=== PATIENT | male | born 1955 | race Caucasian/White ===

== ENCOUNTER → 2017-08-19 | Outpatient (CLI) | payer OTHER ==
[~2017-08-19] MED LIST: CLIN300C3 PO; DILT120C17 PO; LEVO125T6 PO; LISI20TA; LVT.05T PO; NAPR-243 PO
--- NOTE | 2017-08-19 11:00 | Diagnostic Imaging Report ---
PROCEDURE: CT neck soft tissue without contrast. TECHNIQUE: Multiple contiguous axial images were obtained through the neck without the use of intravenous contrast. INDICATION: Lump in left neck with difficulty swallowing and breathing. FINDINGS: Examination is technically limited due to lack of intravenous contrast. The lung apices are clear. The thyroid, submandibular and parotid glands are grossly normal in appearance. Visualized intracranial structures are unremarkable. There is mucosal thickening in maxillary sinuses bilaterally. Mastoid air cells are clear. There is some symmetric narrowing of the oropharyngeal airway. Nasopharyngeal soft tissues are grossly symmetric and without evidence of mass effect. Hypopharyngeal tissues are unremarkable. Vocal cords are midline. There are scattered subcentimeter lymph nodes however there is no pathologically enlarged adenopathy or mass in the neck. Evaluation is limited due to lack of intravenous contrast. There is moderate cervical spondylosis. IMPRESSION: 1. Symmetric narrowing of the oral pharyngeal airway. 2. No pathologically enlarged adenopathy or mass in the neck. 3. Mucosal thickening in the maxillary sinuses bilaterally. 4. Moderate cervical spondylosis. Dictated by: Dictated on workstation # [id number]
== END ==
LOC: RAD 08:49
PROVIDERS: ATTEND Family Medicine
DX: J34.89 Other specified disorders of nose and nasal sinuses (principal); J39.2 Other diseases of pharynx; M47.812 Spondylosis without myelopathy or radiculopathy, cervical region
CPT/HCPCS: 70490

== ENCOUNTER 2019-04-18 16:36 | Emergency (ER) | payer OTHER ==
[~2019-04-18] VITALS: Ht 180.3 cm; Wt 79.4 kg
[2019-04-18] MEDS ORDERED: ADENOSINE 6 MG/2 ML (ADENOCARD) VIAL IV ONE ×3 (16:38→17:15)
--- NOTE | 2019-04-18 17:08 | ED Cardiac General ---
History of Present Illness General Chief Complaint: Cardiac/General Problems Stated Complaint: HEART RATE 175 PER APPLE WATCH Source: patient Exam Limitations: no limitations History of Present Illness Date Seen by Provider: Apr 18, 2019 Time Seen by Provider: 17:07 Initial Comments To ER with reports of high heart rate that began about 3 PM while sitting on the couch. He was alerted to this by his apple watch. He had a bit of pressure in his chest no shortness of breath. History of high heart rate in 2009, not sure what the diagnosis was. Timing/Duration: changing over time Severity: moderate NTG SL ADMISSION DISCHARGE RN: No ASA po ADMISSION DISCHARGE RN: No Associated Systoms: Chest Pain Allergies and Home Medications Allergies Coded Allergies: No Known Allergies (Unverified Allergy, Mild, 08/03/09) Home Medications Clindamycin Hcl 300 Mg Capsule, 1 EACH PO QID Prescribed by: JASWANT JOY on 01/24/14 1216 Levothyroxine Sodium 125 Mcg Tablet, 125 EACH PO DAILY, (Reported) Naproxen 500 Mg Tablet, 1 EACH PO TID PRN for PAIN FOR PAIN Prescribed by: JASWANT JOY on 01/24/14 1216 Patient Home Medication List Home Medication List Reviewed: Yes Review of Systems Review of Systems Constitutional: see HPI EENTM: No Symptoms Reported Respiratory: No Symptoms Reported Cardiovascular: See HPI, Palpitations Gastrointestinal: No Symptoms Reported Genitourinary: No Symptoms Reported Musculoskeletal: no symptoms reported Skin: no symptoms reported Psychiatric/Neurological: No Symptoms Reported Endocrine: No Symptoms Reported Past Kqjaeeg-Nnfsfo-Bgcxlm Hx Past Medical History Reproductive Disorders: No Hypothyroidsim Physical Exam Vital Signs Vital Signs - First Documented 04/18/19 16:40 Temp 97.9 Pulse 170 Resp 20 B/P (MAP) 147/99 (115) Pulse Ox 99 Capillary Refill : Height, Weight, BMI Height: 6'0" Weight: 236lbs. oz. 107.523627pc; BMI Method:Stated General Appearance: No Apparent Distress, WD/WN HEENT: PERRL/EOMI, TMs Normal Neck: Full Range of Motion, Normal Inspection Respiratory: No Accessory Muscle Use, No Respiratory Distress Cardiovascular: Tachycardia (initial heart rate 160 irregular narrow complex) Gastrointestinal: Normal Bowel Sounds, Non Tender, Soft Extremity: Normal Capillary Refill, Normal Inspection Neurologic/Psychiatric: Alert, Oriented x3 Skin: Normal Color, Warm/Dry Progress/Results/Core Measures Results/Orders Lab Results Laboratory Tests Test 04/18/19 16:40 Range/Units White Blood Count 7.4 4.3-11.0 10^3/uL Red Blood Count 5.63 4.35-5.85 10^6/uL Hemoglobin 15.7 13.3-17.7 G/DL Hematocrit 46 40-54 % Mean Corpuscular Volume 81 80-99 FL Mean Corpuscular Hemoglobin 28 25-34 PG Mean Corpuscular Hemoglobin Concent 34 32-36 G/DL Red Cell Distribution Width 13.9 10.0-14.5 % Platelet Count 239 130-400 10^3/uL Mean Platelet Volume 10.1 7.4-10.4 FL Neutrophils (%) (Auto) 54 42-75 % Lymphocytes (%) (Auto) 34 12-44 % Monocytes (%) (Auto) 10 0-12 % Eosinophils (%) (Auto) 2 0-10 % Basophils (%) (Auto) 1 0-10 % Neutrophils # (Auto) 4.0 1.8-7.8 X 10^3 Lymphocytes # (Auto) 2.5 1.0-4.0 X 10^3 Monocytes # (Auto) 0.8 0.0-1.0 X 10^3 Eosinophils # (Auto) 0.1 0.0-0.3 10^3/uL Basophils # (Auto) 0.0 0.0-0.1 10^3/uL Prothrombin Time 14.5 12.2-14.7 SEC INR Comment 1.1 0.8-1.4 Activated Partial Thromboplast Time 37 H 24-35 SEC Sodium Level 142 135-145 MMOL/L Potassium Level 3.8 3.6-5.0 MMOL/L Chloride Level 105 98-107 MMOL/L Carbon Dioxide Level 22 21-32 MMOL/L Anion Gap 15 H 5-14 MMOL/L Blood Urea Nitrogen 19 H 7-18 MG/DL Creatinine 1.25 0.60-1.30 MG/DL Estimat Glomerular Filtration Rate 59 BUN/Creatinine Ratio 15 Glucose Level 151 H 70-105 MG/DL Calcium Level 9.5 8.5-10.1 MG/DL Corrected Calcium 9.1 8.5-10.1 MG/DL Magnesium Level 2.0 1.6-2.4 MG/DL Total Bilirubin 0.3 0.1-1.0 MG/DL Aspartate Amino Transf (AST/SGOT) 26 5-34 U/L Alanine Aminotransferase (ALT/SGPT) 24 0-55 U/L Alkaline Phosphatase 55 40-136 U/L Myoglobin 50.5 10.0-92.0 NG/ML Troponin I < 0.028 <0.028 NG/ML B-Type Natriuretic Peptide < 10.0 <100.0 PG/ML Total Protein 8.4 H 6.4-8.2 GM/DL Albumin 4.5 3.2-4.5 GM/DL Thyroid Stimulating Hormone (TSH) 0.90 0.35-4.94 UIU/ML Free Thyroxine 1.08 0.70-1.48 NG/DL My Orders Orders - TYLER RUSSELL APRN Cbc With Automated Diff (04/18/19 17:05) Magnesium (04/18/19 17:05) Chest 1 View, Ap/Pa Only (04/18/19 17:05) Ekg Tracing (04/18/19 17:05) Cardiac Profile 1 (04/18/19 17:05) Comprehensive Metabolic Panel (04/18/19 17:05) Myoglobin Serum (04/18/19 17:05) Protime With Inr (04/18/19 17:05) Partial Thromboplastin Time (04/18/19 17:05) O2 (04/18/19 17:05) Monitor-Rhythm Ecg Trace Only (04/18/19 17:05) Lipid Panel (04/19/19 06:00) Ed Iv/Invasive Line Start (04/18/19 17:05) BNP (04/18/19 17:05) Ekg Tracing (04/18/19 17:05) Ekg Tracing (04/18/19 17:05) Thyroid Stimulating Hormone (04/18/19 17:05) Free T4 (Free Thyroxine) (04/18/19 17:05) Adenosine Injection (Adenocard Injection (04/18/19 17:15) Adenosine Injection (Adenocard Injection (04/18/19 17:15) Medications Given in ED Current Medications Medications Dose Ordered Sig/Kassi Route Start Time Stop Time Status Last Admin Dose Admin Adenosine 6 mg ONCE ONCE IV 04/18/19 17:15 04/18/19 17:16 DC 04/18/19 16:46 6 MG Adenosine 12 mg ONCE ONCE IV 04/18/19 17:15 04/18/19 17:16 DC 04/18/19 16:48 12 MG Vital Signs/I&O 04/18/19 16:40 Temp 97.9 Pulse 170 Resp 20 B/P (MAP) 147/99 (115) Pulse Ox 99 Departure Communication (Admissions) Converted to normal sinus rhythm without ectopy rate in the 90s after the administration of 6 mg of adenosine which failed followed with 12 mg of adenosine which successfully converted. 1753-discussed with Dr. Tam. Recommends full dose aspirin 325 mg, follow up with him next week. Impression Primary Impression: Supraventricular tachycardia Disposition: HOME, SELF-CARE Condition: Improved Departure-Patient Inst. Decision time for Depature: 17:52 Referrals: SONIA SANTOS DO (PCP/Family) Primary Care Physician Jessica TAM MD Patient Instructions: Supraventricular Tachycardia (SVT) Add. Discharge Instructions: 1. Return to ER for any concerns 2. Call clamp forklift operator Dr. Tam on Saturday morning to make an appointment to be seen within one to 2 weeks. Tell them that you were in the emergency room and he wants to see you within 2 weeks. In the meantime start taking a full dose aspirin (325mg) daily. Continue all other current medications. All discharge instructions reviewed with patient and/or family. Voiced understanding. Copy Copies To 1: Jessica TAM MD, PETER J APRN Apr 18, 2019 17:08
[2019-04-18 17:11] LABS: BASOPHILS % (AUTO) 1 % (0-10); EOSINOPHILS # (AUTO) 0.1 10^3/uL (0.0-0.3); EOSINOPHILS % (AUTO) 2 % (0-10); HEMATOCRIT 46 % (40-54); HEMOGLOBIN 15.7 G/DL (13.3-17.7); LYMPHOCYTES # (AUTO) 2.5 X 10^3 (1.0-4.0); LYMPHOCYTES % (AUTO) 34 % (12-44); MEAN CORPUSCULAR HEMOGLOBIN 28 PG (25-34); MEAN CORPUSCULAR HGB CONC 34 G/DL (32-36); MEAN CORPUSCULAR VOLUME 81 FL (80-99); MEAN PLATELET VOLUME 10.1 FL (7.4-10.4); MONOCYTES # (AUTO) 0.8 X 10^3 (0.0-1.0); MONOCYTES % (AUTO) 10 % (0-12); NEUTROPHILS % (AUTO) 54 % (42-75); PLATELET COUNT 239 10^3/uL (130-400); RED CELL DISTRIBUTION WIDTH 13.9 % (10.0-14.5); WHITE BLOOD COUNT 7.4 10^3/uL (4.3-11.0)
[2019-04-18 17:16] LABS: INR 1.1 (0.8-1.4); PROTHROMBIN TIME PATIENT 14.5 SEC (12.2-14.7)
[2019-04-18 17:23] LABS: ALANINE AMINOTRANSFERASE 24 U/L (0-55); ALBUMIN 4.5 GM/DL (3.2-4.5); ALKALINE PHOSPHATASE 55 U/L (40-136); BILIRUBIN,TOTAL 0.3 MG/DL (0.1-1.0); BUN/CREATININE RATIO 15; CALCIUM 9.5 MG/DL (8.5-10.1); CARBON DIOXIDE 22 MMOL/L (21-32); CHLORIDE 105 MMOL/L (98-107); CREATININE SERUM 1.25 MG/DL (0.60-1.30); GFR ESTIMATED 59; GLUCOSE 151 MG/DL (70-105); POTASSIUM 3.8 MMOL/L (3.6-5.0); SODIUM 142 MMOL/L (135-145); TOTAL PROTEIN 8.4 GM/DL (6.4-8.2)
--- NOTE | 2019-04-18 17:38 | Diagnostic Imaging Report ---
EXAMINATION: Portable chest. INDICATION: Chest pressure. FINDINGS: Lungs demonstrate no focal infiltrate or consolidation. There is no effusion. There is no pneumothorax. Heart size and mediastinal contours appear appropriate and pulmonary vascularity appears normal. No acute or suspicious osseous abnormality evident. IMPRESSION: 1. No radiographic evidence of an acute cardiopulmonary process. Dictated by: Dictated on workstation # [id number]
[2019-04-18 17:44] LABS: FREE T4 (FREE THYROXINE) 1.08 NG/DL (0.70-1.48)
[2019-04-18] MEDS ORDERED: HOLD METFORMIN - RECEIVED CONTRAST 20 ML VIAL IV SCH (18:30)
[2019-04-18] MEDS ORDERED: IOHEXOL 350 MG/ML 100 ML (OMNIPAQUE 350) VIAL IV ONE (18:30)
[2019-04-18] MEDS ORDERED: NS 100 ML (IVPB) BAG IV ONE (18:30)
--- NOTE | 2019-04-18 18:41 | Diagnostic Imaging Report ---
PROCEDURE: CT angiography of the chest with contrast. TECHNIQUE: Multiple contiguous axial images were obtained through the chest after uneventful bolus administration of intravenous contrast. 3D reconstructed CTA MIP acquisitions were also performed. Auto Exposure Controls were utilized during the CT exam to meet ALARA standards for radiation dose reduction. INDICATION: Tachycardia and chest pressure. COMPARISON: Comparison is made with chest radiograph from earlier on the same day. FINDINGS: There is adequate opacification of the pulmonary arteries for diagnostic evaluation. There are no findings of a filling defect to suggest pulmonary embolism. Thoracic aorta is unremarkable. There are no findings of a dissection. Heart size appears appropriate. There is no pericardial collection. There are no pathologically enlarged mediastinal, hilar or axillary lymph nodes. The lungs appear clear without evidence of focal infiltrate or consolidation. There is no effusion. There is no pneumothorax. No pulmonary nodules or mass evident. Visualized portion of the upper abdomen demonstrates large gallstone within the gallbladder but no biliary dilatation or acute upper abdominal abnormality. Multilevel thoracic degenerative disc disease is present. No acute or suspicious osseous abnormality is demonstrated. IMPRESSION: 1. No CT angiographic evidence of pulmonary embolism. 2. Thoracic aorta is unremarkable. 3. Lungs are clear without infiltrate or effusion. 4. No pathologic adenopathy. 5. Cholelithiasis without biliary dilatation. 6. Thoracic degenerative disc disease. No acute or suspicious osseous abnormality evident. Dictated by: Dictated on workstation # [id number]
[2019-04-18 18:57] VITALS: BP 135/91
== END 2019-04-18 18:59 | disposition home or self-care (01) ==
LOC: EDUNIT# 16:36 → ER 16:38
DX: I47.1 Supraventricular tachycardia (principal); E03.9 Hypothyroidism, unspecified
CPT/HCPCS: 36415; 71045; 71275; 80053; 83735; 83874; 83880; 84439; 84443; 84484; 85025; 85610; 85730; 93005; 93041; 96374

== ENCOUNTER 2019-06-22 06:58 | Day surgery (SDC) | payer OTHER ==
[~2019-06-22] VITALS: Ht 183 cm; Wt 96.0 kg
[2019-06-22] VITALS (21 sets, daily range): BP systolic 108–139; BP diastolic 70–103
[2019-06-22] MEDS ORDERED: NS IV 1000 ML 1,000 ML IV SCH (07:02)
[2019-06-22] MEDS ORDERED: HEParin (CATH LAB) 1,000 ML IV ONE (07:03)
[2019-06-22] MEDS ORDERED: NS IV 1000 ML 1,000 ML ONE (07:03)
[2019-06-22] MEDS ORDERED: LIDOCAINE 1% INJ 20 ML 20 ML VIAL ONE (07:03)
[2019-06-22] MEDS ORDERED: ISOPROTERENOL 0.2 MG/D5W 50 ML IV ONE (07:15)
[2019-06-22] MEDS ORDERED: proPOfol 200 MG/20 ML (DIPRIVAN) VIAL IV ONE (07:17)
[2019-06-22] MEDS ORDERED: KETAMINE HCL 100 MG/ML 5 ML VIAL ONE (07:17)
[2019-06-22] MEDS ORDERED: MIDAZOLAM 5 MG/5 ML (VERSED) VIAL ONE (07:17)
[2019-06-22 07:20] LABS: HEMOGLOBIN 14.7 G/DL (13.3-17.7); MEAN PLATELET VOLUME 9.5 FL (7.4-10.4); RED CELL DISTRIBUTION WIDTH 13.7 % (10.0-14.5); WHITE BLOOD COUNT 5.7 10^3/uL (4.3-11.0)
[2019-06-22 07:30] LABS: INR 1.2 (0.8-1.4); PROTHROMBIN TIME PATIENT 16.1 SEC (12.2-14.7)
[2019-06-22] MEDS ORDERED: LEVO125T6 PO (07:37)
[2019-06-22] MEDS ORDERED: LORA10TA7 PO (07:38)
[2019-06-22] MEDS ORDERED: SIMV10TA3 PO (07:38)
[2019-06-22] MEDS ORDERED: DILT120C47 PO (07:38)
[2019-06-22] MEDS ORDERED: ASPI325T32 PO (07:38)
[2019-06-22] MEDS ORDERED: IBUP-2055 PO (07:38)
[2019-06-22] MEDS ORDERED: TRAZ-190 PO (07:38)
[2019-06-22] MEDS ORDERED: ACET325T38 PO (07:38)
[2019-06-22 07:39] LABS: ALANINE AMINOTRANSFERASE 19 U/L (0-55); ALBUMIN 4.6 GM/DL (3.2-4.5); ALKALINE PHOSPHATASE 51 U/L (40-136); BILIRUBIN,TOTAL 0.6 MG/DL (0.1-1.0); BUN/CREATININE RATIO 16; CALCIUM 9.6 MG/DL (8.5-10.1); CARBON DIOXIDE 23 MMOL/L (21-32); CHLORIDE 108 MMOL/L (98-107); CREATININE SERUM 1.22 MG/DL (0.60-1.30); GFR ESTIMATED 60; GLUCOSE 103 MG/DL (70-105); POTASSIUM 4.2 MMOL/L (3.6-5.0); SODIUM 143 MMOL/L (135-145); TOTAL PROTEIN 7.8 GM/DL (6.4-8.2)
[2019-06-22] MEDS ORDERED: [UNRECOGNIZED DRUG - OTHER] TOP (07:41)
[2019-06-22] MEDS ORDERED: TESTOST TOP (07:41)
[2019-06-22] MEDS ORDERED: DILT120C53 PO (07:46)
[2019-06-22] MEDS ORDERED: TRAZ-222 PO (07:47)
--- NOTE | 2019-06-22 07:48 | NUR ---
SPOKE WITH THE PT (HE HAD A MED LIST) WELL CALLING [employer] [facility] TO COMPLETE THE MED REC. 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 PT WAS ABLE TO TELL ME ALL HIS MEDICATIONS WELL HOW/WHEN HE TAKES THEM. THE FOLLOWING ARE FILL DATES FROM HIS MAIL ORDER PHARMACY: 03-26-2019 TRAZODONE #90/90DS 04-27-2019 SIMVASTATIN #90/90DS 05-08-2019 CARTIA (DILTIAZEM) #90/90DS 06-05-2019 LEVOTHYROXINE #90/90DS PT HAS USED A COMPOUNDED TESTOSTERONE WITH VANICREAM THAT HE GETS FROM [facility]. HE SAYS HE HAS NOT USED IT THE PAST COUPLE WEEKS- HIS LAST FILL DATE WAS 03-03-2019 OTC MEDS: TYLENOL 325MG ASPIIRN 325MG IBUPROFEN 200
[2019-06-22] MEDS ORDERED: PROPOFOL DRIP (ICU) 100 ML IV ONE (09:34)
[2019-06-22] MEDS ORDERED: fentaNYL INJECTION 100 MCG/2 ML AMP ONE (09:50)
--- NOTE | 2019-06-22 10:20 | Electrophysiology Procedure ---
EP Procedure DATE OF SERVICE:06/22/19 CARDIAC POLLUTION CONTROL CHEMIST: Alonzo Tam MD, [facility], [facility]. INDICATION: PSVT PREOPERATIVE DIAGNOSIS: PSVT POSTOPERATIVE DIAGNOSES: Typical AVNRT, successful ablation. HISTORY: 63-year-old gentleman with history of hypertension and hyperlipidemia. Episode of PSVT requiring ER visit on 04/18/2019. Converted with adenosine. The patient is planned for comprehensive EP study and ablation. PROCEDURE PERFORMED: 1. Comprehensive EP study with induction. 2. Fluoroscopy. 3.Left atrial pacing and recording. 4. Drug infusion. 5. Ablation of typical AVNRT 6. Comprehensive 3D mapping with the carto system. COMPLICATION: None. ESTIMATED BLOOD LOSS: 10 mL. CONTRAST USED: None. FLUOROSCOPY TIME: 6 minutes 28 seconds. FLUOROSCOPY DOSE: 114 mgy. SPECIMENS: None. ANESTHESIA: Done by our anesthesia colleagues. ANTICOAGULATION: None PROCEDURE IN DETAIL: After informed consent was taken, the patient was brought to the EP lab. Anesthesia was provided by our anesthesia colleagues. The patient was draped and prepped in the usual sterile fashion. The patient presented to the EP lab in sinus rhythm. Access was gained in the right femoral vein with a 6-Uruguayan and an 8-Uruguayan sheath. Left access in left femoral vein was gained with 5-Uruguayan and 6-Uruguayan sheath respectively. High right atrial catheter was an Emi catheter, right ventricular catheter was placed, his catheter and the CS catheter were also placed. A comprehensive EP study was done including left atrial pacing and recording. Dual AV mau physiology was demonstrated. Left atrial pacing and recording did not demonstrate a left lateral pathway. RV pacing demonstrated concentric atrial activation. Tachycardia was induced very easily during atrial ERP testing. This was done without Isuprel infusion. Septal VA time was 50 ms. Tachycardia cycle length was 393 ms. We tried numerous times to entrain the tachycardia however the tachycardia will convert to sinus rhythm therefore post pacing interval and post pacing response could not be demonstrated. Parahisian pacing was done in sinus rhythm which demonstrated a mau response.Diagnoses was typical AVNRT. A 3D electroanatomic mapping was donewith the carto system. High density voltage mapping was done in the slow pathway area inferior/septal to the history. Ablation was performed inferior/septal to the bundle of His in the slow pathway area based on the chronic anatomical and atrial and ventricular voltage ratio. Numerous junctional beats were noted. Atrial pacing demonstrated normal AV conduction during ablation.Isuprel was given post-procedure,which demonstrated no further dual AV mau physiology, no further induction. Occasional single AV mau echoes were demonstrated.The patient tolerated the procedure well and did not have any complication. The patientleft the lab in sinus rhythm. Total ablation time was 3 minutes and 49 seconds. MEASUREMENTS/EP STUDY: AA interval 754 ms, AH interval 78 ms, HV interval 49 ms, MI interval 164 ms, QRS duration 101 ms, QT interval 365 ms, R-R interval 754 ms, AV Wenckebach when pacing at 440 ms. Retrograde Wenckebach when pacing at 370 ms, Fast pathway ERP was 600/400 ms, Post-ablation, on Isuprel infusion: Retrograde ERP was 440/230 ms, Fast pathway ERP 400/230 ms. No further dual AV mau physiology. No further arrhythmias induced. PLAN: The patient will be observed overnight and will be discharged home tomorrow with precise followup instructions. Alonzo Tam MD, RS, CCDS Cardiac Electrophysiology Jessica TAM MD Jun 22, 2019 10:20 am POS
--- NOTE | 2019-06-22 10:24 | History & Physicial-Cardiolgy ---
HPI-Cardiology Cardiology Consultation: Date of Consultation 06/22/19 Date of Admission Attending Physician Jessica Vela MD Admitting Physician Tom Waldrop DO Consulting Physician Jessica VELA MD HPI: Time Seen by a Provider: 08:00 Chief Complaint: Palpitations This is a 63-year-old gentleman who presented to the ER on 04/18/2019 with complains of palpitation and was found to be in SVT. SVT converted with adenosine. He has history of hyperlipidemia and hypertension. EKG on 04/18/2019 showed wide complex tachycardia at 161 bpm with right bundle-branch block. QRS duration of 136 ms. Review of Systems-Cardiology Review of Systems Constitutional: As described under HPI; No As described under HPI, No no symptoms reported, No chills, No fever, No lightheadedness Eyes: No As described under HPI, No no symptoms reported, No blindness, No blurred vision, No contact lenses, No drainage, No decreased acuity, No foreign body sensation, No pain, No vision change Ears/Nose/Throat: No As described under HPI, No no symptoms reported, No chronic hearing loss, No ear discharge, No ear pain, No nasal drainage, No ulcerations Respiratory: No no symptoms reported; As described under HPI; No As described under HPI, No cough, No orthopnea, No shortness of breath, No SOB with excertion Cardiovascular: No no symptoms reported; As described under HPI; No As described under HPI, No chest pain, No edema, No irregular heart rate, No lightheadedness; palpitations Gastrointestinal: No no symptoms reported, No As described under HPI, No abdomen distended, No abdominal pain, No blood streaked bowels, No constipation, No diarrhea, No nausea, No vomiting, No stool coloration changes Genitourinary: No As described under HPI, No burning, No dysuria, No discharge, No frequency, No flank pain, No hematuria, No urgency Skin: No rash, No skin related problems, No ulcerations Psychiatric/Neurological: No anxiety, No depression, No seizure, No focal weakness, No syncope Hematologic: No bleeding abnormalities VXR-Fujjle-Kkkrao Hx Patient Social History Alcohol Use: Denies Use Recreational Drug Use: No Smoking Status: Former Smoker Recent Foreign Travel: No Recent Infectious Disease Expo: No Past Medical History PMH As described under Assessment. Allergies and Home Medications Allergies Coded Allergies: NKANo Known Allergies (Unverified Allergy, Mild, 08/03/09) Home Medications Acetaminophen 325 Mg Tablet, 650 MG PO Q8H PRN for PAIN-MILD (0-3), (Reported) Aspirin 325 Mg Tablet.dr, 325 MG PO 1800, (Reported) Diltiazem HCl 120 Mg Cap.er.24h, 120 MG PO 1800, (Reported) Ibuprofen 200 Mg Tablet, 400 MG PO Q8H PRN for PAIN-MILD (0-3), (Reported) Levothyroxine Sodium 125 Mcg Tablet, 125 MCG PO 0300, (Reported) Loratadine 10 Mg Tablet, 10 MG PO DAILY PRN for ALLERGY SYMPTOMS, (Reported) Simvastatin 10 Mg Tablet, 10 MG PO 1800, (Reported) Trazodone HCl 50 Mg Tablet, 50 MG PO 1200 PRN for SLEEP, (Reported) [Testost 10% W/ Vanic] CR, 0.5 ML TOP DAILY, (Reported) USES 2 CLICKS WHICH EQUAL 0.5 ML Patient Home Medication List Home Medication List Reviewed: Yes Physical Exam-Cardiology Physical Exam Vital Signs/I&O 06/22/19 07:12 Temp 37.0 Pulse 75 Resp 16 B/P (MAP) 139/103 (115) Pulse Ox 96 O2 Delivery Room Air Capillary Refill : Constitutional: appears stated age, AAO x 3; No apparent distress; well- developed, well-nourished HEENT: PERRL; No discharge; hearing is well preserved, oral hygience is good; No ulceration, No xanthelasmas are seen Neck: No carotid bruit; carotid pulses are 2 + bilaterally Respiratory: chest is bilaterally symmetric, lungs clear to auscultation Cardiovascular: regular rate-rhythm, S1 and S2 Gastrointestinal: soft, audible bowel sounds; No spleenomegaly Rectal: deferred Extremities: normal range of motion, non-tender, normal inspection; No clubbing, No cyanosis; no lower extremity edema bilateral; No significant edema Neurologic/Psychiatric: no motor/sensory deficits, alert, normal mood/affect, oriented x 3, power is 5/5 both on sides Skin: normal color, warm/dry; No rash, No ulcerations Data Review Labs Laboratory Tests 06/22/19 07:15: White Blood Count 5.7, Red Blood Count 5.32, Hemoglobin 14.7, Hematocrit 43, Mean Corpuscular Volume 81, Mean Corpuscular Hemoglobin 28, Mean Corpuscular Hemoglobin Concent 34, Red Cell Distribution Width 13.7, Platelet Count 210, Mean Platelet Volume 9.5, Prothrombin Time 16.1H, INR Comment 1.2, Activated Pa rtial Thromboplast Time 39H, Sodium Level 143, Potassium Level 4.2, Chloride Level 108H, Carbon Dioxide Level 23, Anion Gap 12, Blood Urea Nitrogen 19H, Creatinine 1.22, Estimat Glomerular Filtration Rate 60, BUN/Creatinine Ratio 16, Glucose Level 103, Calcium Level 9.6, Corrected Calcium , Total Bilirubin 0.6, Aspartate Amino Transf (AST/SGOT) 20, Alanine Aminotransferase (ALT/SGPT) 19, Alkaline Phosphatase 51, Total Protein 7.8, Albumin 4.6H ECG Impression ECG Initial ECG Rhythm: Normal Sinus Comment Right bundle-branch block. A/P-Cardiology Assessment/Admission Diagnosis PSVT Admission Status: Observation Plan PSVT ablation, EP study is recommended. Jessiac VELA MD Jun 22, 2019 10:24 am POS
[2019-06-22] MEDS ORDERED: PATIENT MAY USE OWN MEDS, ALL PO SCH (10:30)
[2019-06-22] MEDS ORDERED: morphine INJ 10 MG/ML 1ML (SYR OR VIAL) ONE (11:00)
[2019-06-22] MEDS ORDERED: ONDANSETRON 4 MG/2 ML (SDV) Z0FRAN IVP PRN (11:00)
[2019-06-22] MEDS ORDERED: morphine INJ 10 MG/ML 1ML (SYR OR VIAL) IVP ONE (11:00)
[2019-06-22] MEDS: NS IV 1000 ML 1,000 ML IV SCH ×2 (11:15→18:33)
[2019-06-22] MEDS ORDERED: KETOROLAC 30 MG/ML VIAL ONE (11:37)
[2019-06-22] MEDS ORDERED: KETOROLAC 30 MG/ML VIAL IV ONE (11:45)
--- NOTE | 2019-06-22 14:19 | Anesthesia-General Post-Op ---
General Patient Condition Mental Status/LOC: Same as Preop Cardiovascular: Satisfactory Nausea/Vomiting: Absent Respiratory: Satisfactory Pain: Controlled Complications: Absent Post Op Complications Complications None Follow Up Care/Instructions Patient Instructions None needed. Anesthesia/Patient Condition Patient Condition Patient is doing well, no complaints, stable vital signs, no apparent adverse anesthesia problems. No complications reported per nursing. JEFF JEAN BAPTISTE CRNA Jun 22, 2019 14:19 POS
[2019-06-22] MEDS ORDERED: SEVOFLURANE (ULTANE) 15 ML INHAL SOLN ONE (14:30)
[2019-06-22] MEDS ORDERED: CLOPIDOGREL 300 MG (PLAVIX) TABLET PO NR (16:00)
[2019-06-22] MEDS ORDERED: ASPIRIN 81 MG CHEW (CHILDREN'S ASA) PO NR (16:00)
[2019-06-23] VITALS (8 sets, daily range): BP systolic 121–133; BP diastolic 84–98
[2019-06-23 06:41] LABS: HEMOGLOBIN 13.1 G/DL (13.3-17.7); MEAN PLATELET VOLUME 9.7 FL (7.4-10.4); RED CELL DISTRIBUTION WIDTH 13.9 % (10.0-14.5); WHITE BLOOD COUNT 6.7 10^3/uL (4.3-11.0)
[2019-06-23] MEDS: NS IV 1000 ML 1,000 ML IV SCH (06:46)
[2019-06-23 06:58] LABS: BUN/CREATININE RATIO 15; CALCIUM 8.5 MG/DL (8.5-10.1); CARBON DIOXIDE 22 MMOL/L (21-32); CHLORIDE 108 MMOL/L (98-107); CREATININE SERUM 0.91 MG/DL (0.60-1.30); GFR ESTIMATED > 60; GLUCOSE 93 MG/DL (70-105); POTASSIUM 4.1 MMOL/L (3.6-5.0); SODIUM 138 MMOL/L (135-145)
[2019-06-23] MEDS ORDERED: CLOPIDOGREL 75 MG (PLAVIX) TABLET PO SCH (09:00)
[2019-06-23] MEDS ORDERED: ASPIRIN E.C. 81 MG (ECOTRIN) TAB PO SCH (09:00)
[2019-06-23] MEDS ORDERED: LIDOCAINE 1% INJ 20 ML 20 ML VIAL ONE (10:38)
[2019-06-23] MEDS ORDERED: HEParin (CATH LAB) 2,000 ML IV ONE (10:38)
--- NOTE | 2019-06-23 10:41 | Cardiology Progress Note ---
Cardiology SOAP Progress Note Subjective: prolonged episode of chest pressure yesterday Objective: I&O/Vital Signs 06/23/19 06/23/19 06/23/19 06/23/19 00:00 00:00 01:00 04:00 Temp 36.0 Pulse 63 61 65 Resp 17 10 B/P (MAP) 131/84 (100) 132/85 (101) Pulse Ox 97 97 O2 Delivery Room Air Room Air 06/23/19 06/23/19 06/23/19 06/23/19 06:57 07:52 08:00 09:09 Temp 36.7 Pulse 53 B/P (MAP) 130/95 (107) O2 Delivery Room Air Room Air 06/23/19 00:00 Intake Total 600 ml Balance 600 ml Weight (Pounds): 175 Weight (Calculated Kilograms): 79.000605 Constitutional: appears stated age, AAO x 3; No apparent distress; well- developed, well-nourished Respiratory: chest is bilaterally symmetric, lungs clear to auscultation Cardiovascular: regular rate-rhythm, S1 and S2 Gastrointestional: soft, audible bowel sounds; No spleenomegaly Extremities: normal range of motion, non-tender, normal inspection; No clubbing, No cyanosis; no lower extremity edema bilateral; No significant edema Neurologic/Psychiatric: no motor/sensory deficits, alert, normal mood/affect, oriented x 3, power is 5/5 both on sides Skin: normal color, warm/dry; No rash, No ulcerations Results/Procedures: Labs Laboratory Tests 06/22/19 12:24: Troponin I 0.259H 06/22/19 14:40: Troponin I 0.291*H 06/23/19 00:00: Troponin I 0.274H 06/23/19 06:34: Troponin I 0.237H, White Blood Count 6.7, Red Blood Count 4.68, Hemoglobin 13.1L , Hematocrit 39L, Mean Corpuscular Volume 83, Mean Corpuscular Hemoglobin 28, Mean Corpuscular Hemoglobin Concent 34, Red Cell Distribution Width 13.9, Platelet Count 169, Mean Platelet Volume 9.7, Sodium Level 138, Potassium Level 4.1, Chloride Level 108H, Carbon Dioxide Level 22, Anion Gap 8, Blood Urea Nitrogen 14, Creatinine 0.91, Estimat Glomerular Filtration Rate > 60, BUN/Creatinine Ratio 15, Glucose Level 93, Calcium Level 8.5 A/P: Assessment/Dx: PSVT, Non-STEMI Plan: Typical AVNRT ablation done 06/18/2019. Prolonged episode of chest pressure. EKG did not reveal any significant ST-T wave abnormalities. Positive troponin. Patient does have risk factors including hyperlipidemia and hypertension. Coronary angiography will be performed. Informed consent was taken. Thank you for your consultation. Please call me if you have any questions. Alonzo Tam MD, FACP, FACC, FSCAI, FHRS, CCDS Interventional Cardiology Cardiac Electrophysiology Vascular Medicine and Endovascular Interventions Jessica TAM MD Jun 23, 2019 10:41 POS
[2019-06-23] MEDS ORDERED: MIDAZOLAM 5 MG/5 ML (VERSED) VIAL ONE (11:09)
[2019-06-23] MEDS ORDERED: fentaNYL INJECTION 100 MCG/2 ML AMP ONE (11:09)
[2019-06-23] MEDS ORDERED: HEParin 1000 UNIT/ML (10ML VIAL) FOR BOLUS ONE (11:13)
[2019-06-23] MEDS ORDERED: VERAPAMIL 5 MG/2 ML (CALAN) VIAL IV ONE (11:13)
[2019-06-23] MEDS ORDERED: NITRO DRIP 25000 MCG/D5W 0 ML IV ONE (11:13)
[2019-06-23] MEDS ORDERED: NS IV 1000 ML 1,000 ML ONE (11:25)
--- NOTE | 2019-06-23 12:16 | Cardiac Procedure Note-CS/ASA ---
Pre-Procedure Note Pre-Op Procedure Note H&P Reviewed The H&P was reviewed, patient examined and no changes noted. Date H&P Reviewed: Jun 23, 2019 Time H&P Reviewed: 10:00 Conscious Sedation Pre-Proced Time 10:00 ASA Score 3 For ASA 3 and 4: Consider anesthesia and medical clearance. Also, for patients with a history of failed moderate sedation consider anesthesia. Airway Lungs Heart ASA score ASA 1: a normal healthy patient ASA 2: a patient with a mild systemic disease (mid diabetes, controlled hypertension, obesity ASA 3: a patient with a severe systemic disease that limits activity (angina, COPD, prior Myocardial infarction) ASA 4: a patient with an incapacitating disease that is a constant threat to life (CHF, renal failure) ASA 5: a moribund patient not expected to survive 24 hrs. (ruptured aneurysm) ASA 6: a declared brain- patient whose organs are being harvested. For emergent operations, add the letter E after the classification Mallampati Classification Grade 1 Sedation Plan Analgesia, Amnesia, Plan communicated to team members, Discussed options with patient/fam, Discussed risks with patient/fam The patient is an appropriate candidate to undergo the planned procedure, sedation, and anesthesia. The patient immediately re-assessed prior to indication. Jessica VELA MD Jun 23, 2019 12:16 pm POS
--- NOTE | 2019-06-23 12:19 | Coronary Angiography Report ---
Coronary Angiography Report DATE OF PROCEDURE: 06/23/19 INDICATION: Non-STEMI PREOPERATIVE DIAGNOSIS: Non-STEMI POSTOPERATIVE DIAGNOSIS: Mild CAD HISTORY: This is a 63-year-old gentleman with history of hypertension and hyperlipidemia. He presented with PSVT and had PSVT ablation on 06/22/2019. Postprocedure he developed moderate to severe prolonged episode of chest pain. Positive troponin. Working diagnosis is non-STEMI. Therefore, the patient was scheduled for coronary angiography. PROCEDURES PERFORMED: 1.Coronary angiography. 2.Left heart catheterization. COMPLICATIONS: None. SPECIMENS: None. ESTIMATED BLOOD LOSS: 10 mL ANESTHESIA: Conscious sedation ANTICOAGULATION: None. CONTRAST: 40 mL. FLUOROSCOPY: 2.8 minutes. FLOUROSCOPY DOSE: 293 MGY. PROCEDURE DETAILS: The patient is a 63 male and was brought to the public works laborer after informed consent was taken. All the risks and complications were explained in detail; this included the risk of bleeding, vascular damage, stroke, [place] and even . The patient was draped and prepped in the usual sterile fashion. Access was gained in the right femoral artery with a 6 Lithuanian sheath due to abnormal Riley's test. Coronary angiography and left heart catheterization was performed with a JR4 and JL4 catheter. FINDINGS: 1.Left main: Patent. 2.LAD: Luminal irregularities. No focal stenosis. 3.Left circumflex artery: Patent. 4.RCA: Very mild proximal disease with calcification. Stenosis severity less than 10 percent. No focal stenosis. 5.Left heart catheterization: LV pressure 125/9 mmHg, LVEDP 20 mmHg. Aortic pressure 135/82 mmHg. Normal LV function with no wall motion of mellitus. No gradient across the aortic valve. CONCLUSIONS: Mild CAD. Elevated LVEDP suggesting diastolic dysfunction. Positive troponin likely due to SVT ablation which was done yesterday. Continue secondary prevention measures. Alonzo Tam MD, FACP, FACC, [facility] Interventional Cardiology Jessica TAM MD Jun 23, 2019 12:19 pm POS
--- NOTE | 2019-06-23 12:23 | Cardiology Discharge Summary ---
Diagnosis/Chief Complaint Date of Admission 06/18/2019 Date of Discharge 06/23/2019 Admission Diagnosis PSVT, Chest pain, positive troponin Final/Discharge Diagnosis 1. Successful typical AVNRT ablation. 2. Mild CAD on coronary angiography, likely positive troponin and chest pain post-ablation. Chief Complaint/HPI Chief Complaint/HPI This is a 63-year-old gentleman who presented to the ER on 04/18/2019 with complains of palpitation and was found to be in SVT. SVT converted with adenosine. He has history of hyperlipidemia and hypertension. EKG on 04/18/2019 showed wide complex tachycardia at 161 bpm with right bundle-branch block. QRS duration of 136 ms. Discharge Summary Procedures 06/22/2019typical AVNRT ablation. 06/23/2019coronary angiography which showed very mild CAD. Elevated LVEDP. Discharge Physical Examination Unremarkable. Normal cardiac vascular examination. Hospital Course Was the Problem List Reviewed?: Yes Patient had a prolonged episode of chest pressure last evening. EKG was negative. Serial troponin were positive. The patient did have risk factors including hypertension and hyperlipidemia. After discussion, we decided to proceed with coronary angiography. Informed consent was taken. Coronary angiography did not show any significant CAD. Elevated LVEDP suggested diast olic dysfunction. Pending Labs Laboratory Tests 06/23/19 06:34: White Blood Count 6.7, Red Blood Count 4.68, Hemoglobin 13.1, Hematocrit 39, Mean Corpuscular Volume 83, Mean Corpuscular Hemoglobin 28, Mean Corpuscular Hemoglobin Concent 34, Red Cell Distribution Width 13.9, Platelet Count 169, Mean Platelet Volume 9.7, Sodium Level 138, Potassium Level 4.1, Chloride Level 108, Carbon Dioxide Level 22, Anion Gap 8, Blood Urea Nitrogen 14, Creatinine 0.91, Estimat Glomerular Filtration Rate > 60, BUN/Creatinine Ratio 15, Glucose Level 93, Calcium Level 8.5, Troponin I 0.237 Discussion & Recommendations Discussion Discharge discussion done. Patient will go home on the same medications. Follow up in office in 3-4 weeks. Follow up appt.: Follow-up in 3-4 weeks. Dicharge Diet: Cardiac Diet Activity as Tolerated: Yes Home Medications Reviewed patient Home Medication Reconciliation performed by pharmacy medication reconciliations voice intercept technician and/or nursing. Patients Allergies have been reviewed. Discharge Home Medications: Reviewed and agree with Discharge Medication list on patient's Discharge Instruction sheet Condition at discharge Stable. Instructions to patient/family Discussed with the patient and family. Jessica VELA MD Jun 23, 2019 12:23 pm POS
--- NOTE | 2019-06-23 12:24 | Discharge Inst-Post CATH ---
Discharge Inst-CATH/EP Problems Reviewed?: Yes Final Diagnosis PSVT, successful typical AVNRT ablation. Chest pain, positive troponin post-ablation, no significant CAD on coronary angiography. Post Cardiac Cath/EP D/C Inst Follow Up/Plan Discussed with the patient and family. <b>CARDIAC CATH/EP PROCEDURE DISCHARGE INSTRUCTIONS</b> ACTIVITY * Go Home directly and rest. * Limit activity of the leg (or wrist if it was used) for 7 days including aerobics, swimming, jogging, bicycling, etc. * Restrict stair-climbing for 7 days if possible, if not, climb up with your non-cath leg, then bring together on the same step. * Avoid lifting, pushing, pulling or excessive movement of the affected extremity for 7 days. * Customary sexual activity may be resumed after 2 days-use caution not to use a position that strains or causes pain to the affected extremity. * No driving for 24 hours. * NO SMOKING. * Avoid straining for bowel movements for 7 days. * Gentle walking on level ground is allowed. * Returning to work will depend on the type of procedure and the results. Your doctor will discuss this with you. CALL YOUR DOCTOR FOR ANY OF THE FOLLOWING: *If bleeding from the puncture site occurs- Apply gentle pressure to site with clean cloth and call your doctor or EMS. * If a knot or lump forms under the skin, increases in size, or causes pain. * If bruising appears to be worsening or moving further down your leg instead of disappearing. * Temperature above 101 F. CARE OF YOUR GROIN INCISION; * Bruising or purple discoloration of the skin near the puncture site is common. * You may shower only, no bathtub bathing for 5 days. Be careful to avoid slipping as your leg may feel stiff. * If a closure device was used on your femoral artery, please see the attached guide regarding care of the device and your leg. * Leave dressing on FOR 24 hours. CARE OF YOUR WRIST INCISION; * Bruising or purple discoloration of the skin near the puncture site is common. * You may shower. * DO NOT submerge wrist. * Leave dressing on FOR 24 hours. Jessica VELA MD Jun 23, 2019 12:24 pm POS
--- NOTE | 2019-06-23 13:56 | NUR ---
Initial visit with the pt (Siddharth) and his (Betzy). Betzy was tearful, stating that before now Siddharth had taken care of her through various illnesses. They both expressed tarik in God and said, expressed gratitude for a timely visit and requested prayer.
== END 2019-06-23 17:01 | disposition home or self-care (01) ==
LOC: CATH 06:58 → ICU 12:11 → CATH 06-23 17:01
PROVIDERS: ATTEND Internal Medicine Interventional Cardiology
DX: I21.4 Non-ST elevation (NSTEMI) myocardial infarction (principal); I25.10 Atherosclerotic heart disease of native coronary artery without angina pectoris; I10 Essential (primary) hypertension; E78.5 Hyperlipidemia, unspecified; I47.1 Supraventricular tachycardia; I48.92 Unspecified atrial flutter; G62.9 Polyneuropathy, unspecified; Z87.891 Personal history of nicotine dependence; Z79.82 Long term (current) use of aspirin; Z79.891 Long term (current) use of opiate analgesic; Z79.1 Long term (current) use of non-steroidal anti-inflammatories (NSAID); Z79.899 Other long term (current) drug therapy
CPT/HCPCS: 36415; 80048; 80053; 84484; 85027; 85610; 85730; 87081; 93005; 93458; 93613; 93621; 93623; 93653

== ENCOUNTER 2019-10-04 18:00 | Emergency (ER) | payer OTHER ==
[~2019-10-04] VITALS: Ht 182.9 cm; Wt 96.2 kg
[~2019-10-04 18:00] MED LIST changes: +ACET325T38 PO; +ASPI325T32 PO; +DILT120C47 PO; +DILT120C53 PO; +IBUP-2473 PO; +LORA10TA7 PO; +SIMV10TA26 PO; +TESTOST TOP; +TRAZ-227 PO; +TRZ50T PO; +[UNRECOGNIZED DRUG - OTHER] TOP
[2019-10-04] MEDS ORDERED: ASPIRIN 81 MG CHEW (CHILDREN'S ASA) PO ONE (18:30)
[2019-10-04 18:33] LABS: BASOPHILS % (AUTO) 0 % (0-10); EOSINOPHILS % (AUTO) 0 % (0-10); HEMATOCRIT 43 % (40-54); HEMOGLOBIN 14.9 G/DL (13.3-17.7); LYMPHOCYTES # (AUTO) 0.5 X 10^3 (1.0-4.0); LYMPHOCYTES % (AUTO) 7 % (12-44); MEAN CORPUSCULAR HEMOGLOBIN 28 PG (25-34); MEAN CORPUSCULAR HGB CONC 35 G/DL (32-36); MEAN CORPUSCULAR VOLUME 80 FL (80-99); MEAN PLATELET VOLUME 9.8 FL (7.4-10.4); MONOCYTES # (AUTO) 0.9 X 10^3 (0.0-1.0); MONOCYTES % (AUTO) 12 % (0-12); NEUTROPHILS # (AUTO) 5.9 X 10^3 (1.8-7.8); NEUTROPHILS % (AUTO) 81 % (42-75); PLATELET COUNT 209 10^3/uL (130-400); RED CELL DISTRIBUTION WIDTH 13.8 % (10.0-14.5); WHITE BLOOD COUNT 7.3 10^3/uL (4.3-11.0)
[2019-10-04] MEDS ORDERED: NS IV 1000 ML 1,000 ML IV SCH (18:35)
[2019-10-04 18:38] LABS: INR 1.3 (0.8-1.4); PROTHROMBIN TIME PATIENT 16.6 SEC (12.2-14.7)
[2019-10-04 18:49] LABS: BAND NEUTROPHILS 4 %; LYMPHOCYTES % (MANUAL) 7 %; MONOCYTES % (MANUAL) 9 %; NEUTROPHILS % (MANUAL) 80 %
[2019-10-04 18:50] LABS: ALBUMIN 4.5 GM/DL (3.2-4.5); BILIRUBIN,TOTAL 0.5 MG/DL (0.1-1.0); CALCIUM 9.4 MG/DL (8.5-10.1); CREATININE SERUM 1.23 MG/DL (0.60-1.30); POTASSIUM 3.6 MMOL/L (3.6-5.0)
--- NOTE | 2019-10-04 18:52 | Diagnostic Imaging Report ---
INDICATION: Flu symptoms. COMPARISON: Prior examination from 04/18/2019. EXAMINATION: Single view of the chest was obtained. FINDINGS: The heart size, mediastinal configuration, and pulmonary vascularity are within normal limits. There is no pleural effusion, pneumothorax or pneumonia. The osseous structures are unremarkable. IMPRESSION: No acute cardiopulmonary abnormality. Dictated by: Dictated on workstation # [id number]
--- NOTE | 2019-10-04 18:57 | ED Cardiac General ---
History of Present Illness General Chief Complaint: Chest Pain Stated Complaint: DX W/ INFLUENZA A/IMTERMITTENT CHEST PRESSURE Nursing Triage Note: Pt amb to room #7 (sent from [facility]) with c/o medial chest discomfort. 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 Pt reports upon rise on this day he developed medial chest discomfort. Pt reports intermittent dizziness, cough, et fatigue. Pt states, "It feels like someone is taking their thumb and just pushing it in my chest." A&OX4. @ side. History of Present Illness Date Seen by Provider: Oct 04, 2019 Time Seen by Provider: 18:05 Initial Comments 64-year-old male awoke this morning with generalized discomfort and low-grade fevers, he denies specific chest pain but more generalized pain. He did not receive a flu vaccine this year. He was seen by [facility] urgent care and found to be flu A+. He has a history of PSVT and had a ablation and heart cath in Jun 2019. He takes Aspirin 325 mg daily, no anticoagulants. He reports mild nausea throughout the day however at this time he denies any nausea, vomiting or chest pain. Timing/Duration: 4-6 hours Prior CP/Workup: cardiac cath NTG SL COACH OPERATOR: No ASA po COACH OPERATOR: No Associated Systoms: No Chest Pain; Cough, Fever/Chills; No Headaches; Malaise, Nausea/Vomiting; No Shortness of Air, No Syncope, No Weakness Allergies and Home Medications Allergies Coded Allergies: NKANo Known Allergies (Unverified Allergy, Mild, 08/03/09) Home Medications Acetaminophen 325 Mg Tablet, 650 MG PO Q8H PRN for PAIN-MILD (0-3), (Reported) Aspirin 325 Mg Tablet.dr, 325 MG PO 1800, (Reported) Diltiazem HCl 120 Mg Cap.er.24h, 120 MG PO 1800, (Reported) Ibuprofen 200 Mg Tablet, 400 MG PO Q8H PRN for PAIN-MILD (0-3), (Reported) Levothyroxine Sodium 125 Mcg Tablet, 125 MCG PO 0300, (Reported) Loratadine 10 Mg Tablet, 10 MG PO DAILY PRN for ALLERGY SYMPTOMS, (Reported) Simvastatin 10 Mg Tablet, 10 MG PO 1800, (Reported) Trazodone HCl 50 Mg Tablet, 50 MG PO 1200 PRN for SLEEP, (Reported) [Testost 10% W/ Vanic] CR, 0.5 ML TOP DAILY, (Reported) USES 2 CLICKS WHICH EQUAL 0.5 ML Patient Home Medication List Home Medication List Reviewed: Yes Review of Systems Review of Systems Constitutional: no symptoms reported, see HPI Respiratory: See HPI, Cough Cardiovascular: See HPI; Denies Chest Pain Gastrointestinal: See HPI, Nausea, Poor Appetite; Denies Vomiting All Other Systems Reviewed Negative Unless Noted: Yes Past Kuofjyq-Zzhtlz-Jjiwll Hx Past Med/Social Hx: Reviewed Nursing Past Med/Soc Hx Patient Social History Alcohol Use: Rarely Uses Number of Drinks Today: 0 Recreational Drug Use: No Smoking Status: Former Smoker Former Smoker, Quit: Aug 12, 1996 2nd Hand Smoke Exposure: No Recent Foreign Travel: No Contact w/Someone Who Travel: No Recent Infectious Disease Expo: No Recent Hopitalizations: No Past Medical History Surgeries: Yes (ROTATOR CUFF REPAIR) Tonsillectomy Respiratory: No Currently Using CPAP: No Currently Using BIPAP: No Cardiac: Yes (Ablation ) Hypertension Neurological: No Reproductive Disorders: No Genitourinary: No Gastrointestinal: Yes Gastroesophageal Reflux Endocrine: Yes (TAKES THYROID MED) Hypothyroidsim HEENT: No Cancer: No Psychosocial: No Integumentary: No Blood Disorders: No Physical Exam Vital Signs Vital Signs - First Documented Capillary Refill : Less Than 3 Seconds Height, Weight, BMI Height: 5'11.00" Weight: 175lbs. oz. [id number]; 28.00 BMI Method:Stated General Appearance: No Apparent Distress, WD/WN HEENT: PERRL/EOMI, TMs Normal, Normal ENT Inspection, Pharynx Normal Neck: Full Range of Motion, Normal Inspection, Non Tender, Supple Respiratory: Chest Non Tender, Lungs Clear, Normal Breath Sounds Cardiovascular: Regular Rate, Rhythm, No Edema, No Murmur, Normal Peripheral Pulses Gastrointestinal: Normal Bowel Sounds, Non Tender, Soft Neurologic/Psychiatric: Alert, Oriented x3, No Motor/Sensory Deficits, Normal Mood/Affect Skin: Normal Color, Warm/Dry Progress/Results/Core Measures Results/Orders Lab Results Laboratory Tests Test 10/04/19 18:10 Range/Units White Blood Count 7.3 4.3-11.0 10^3/uL Red Blood Count 5.38 4.35-5.85 10^6/uL Hemoglobin 14.9 13.3-17.7 G/DL Hematocrit 43 40-54 % Mean Corpuscular Volume 80 80-99 FL Mean Corpuscular Hemoglobin 28 25-34 PG Mean Corpuscular Hemoglobin Concent 35 32-36 G/DL Red Cell Distribution Width 13.8 10.0-14.5 % Platelet Count 209 130-400 10^3/uL Mean Platelet Volume 9.8 7.4-10.4 FL Neutrophils (%) (Auto) 81 H 42-75 % Lymphocytes (%) (Auto) 7 L 12-44 % Monocytes (%) (Auto) 12 0-12 % Eosinophils (%) (Auto) 0 0-10 % Basophils (%) (Auto) 0 0-10 % Neutrophils # (Auto) 5.9 1.8-7.8 X 10^3 Lymphocytes # (Auto) 0.5 L 1.0-4.0 X 10^3 Monocytes # (Auto) 0.9 0.0-1.0 X 10^3 Eosinophils # (Auto) 0.0 0.0-0.3 10^3/uL Basophils # (Auto) 0.0 0.0-0.1 10^3/uL Neutrophils % (Manual) 80 % Lymphocytes % (Manual) 7 % Monocytes % (Manual) 9 % Band Neutrophils 4 % Prothrombin Time 16.6 H 12.2-14.7 SEC INR Comment 1.3 0.8-1.4 Activated Partial Thromboplast Time 37 H 24-35 SEC Sodium Level 139 135-145 MMOL/L Potassium Level 3.6 3.6-5.0 MMOL/L Chloride Level 104 98-107 MMOL/L Carbon Dioxide Level 22 21-32 MMOL/L Anion Gap 13 5-14 MMOL/L Blood Urea Nitrogen 15 7-18 MG/DL Creatinine 1.23 0.60-1.30 MG/DL Estimat Glomerular Filtration Rate 60 BUN/Creatinine Ratio 12 Glucose Level 114 H 70-105 MG/DL Calcium Level 9.4 8.5-10.1 MG/DL Corrected Calcium 9.0 8.5-10.1 MG/DL Magnesium Level 2.0 1.6-2.4 MG/DL Total Bilirubin 0.5 0.1-1.0 MG/DL Aspartate Amino Transf (AST/SGOT) 23 5-34 U/L Alanine Aminotransferase (ALT/SGPT) 17 0-55 U/L Alkaline Phosphatase 60 40-136 U/L Myoglobin 53.3 10.0-92.0 NG/ML Troponin I < 0.028 <0.028 NG/ML Total Protein 8.0 6.4-8.2 GM/DL Albumin 4.5 3.2-4.5 GM/DL My Orders Orders - ZULEIKA SIMMONS Continuous Ekg Monitoring (10/04/19 18:01) Ekg Tracing (10/04/19 18:) Cbc With Automated Diff (10/04/19 18:27) Magnesium (10/04/19 18:27) Chest 1 View, Ap/Pa Only (10/04/19 18:) Comprehensive Metabolic Panel (10/04/19 18:) Myoglobin Serum (10/04/19 18:) Protime With Inr (10/04/19 18:) Partial Thromboplastin Time (10/04/19 18:) O2 (10/04/19 18:) Monitor-Rhythm Ecg Trace Only (10/04/19 18:27) Ed Iv/Invasive Line Start (10/04/19 18:27) Troponin I (10/04/19 18:27) Aspirin Chewable Tablet (Baby Aspirin Ch (10/04/19 18:30) Manual Differential (10/04/19 18:10) Ed Iv/Invasive Line Start (10/04/19 18:35) Ns Iv 1000 Ml (Sodium Chloride 0.9%) (10/04/19 18:35) Acetaminophen Tablet (Tylenol Tablet) (10/04/19 19:32) Rx-Oseltamivir Caps (Rx-Tamiflu Caps) (10/04/19 19:36) Monotest (10/04/19 19:40) Rx-Ondansetron Po (Rx-Zofran Po) (10/04/19 19:53) Medications Given in ED Current Medications Medications Dose Ordered Sig/Kassi Route Start Time Stop Time Status Last Admin Dose Admin Aspirin 324 mg ONCE ONCE PO 10/04/19 18:30 10/04/19 18:31 DC 10/04/19 18:37 324 MG Vital Signs/I&O 10/04/19 10/04/19 18:05 18:05 Temp 37.6 Pulse 100 Resp 18 B/P (MAP) 137/86 (103) Pulse Ox 97 O2 Delivery Room Air Room Air Blood Pressure Mean: 103 Progress Progress Note : Time: 18:05 Progress Note Patient seen and evaluated, will give aspirin 324 mg orally, normal saline 1 L IV, repeat EKG, chest x-ray and labs. Patient denies need for nausea at this time. He is denying chest pain at this time. Will monitor. 1899 Labs, EKG and Chest xray all essentially normal. Patient reports to be feeling better 1929 Temp 99.8, requesting Tylenol, will give 1,000 mg PO. Would like d/c with Tamilfu. 1999 patient reports to be feeling better. Discharge instructions and return precautions reviewed with him. All questions answered. Diagnostic Imaging Diagonstic Imaging: Xray Plain Films/CT/US/NM/MRI: chest Comments NAME: OLVIN CHO [facility] REC#: [id number] PT STATUS: REG ER : 1955 PHYSICIAN: ZULEIKA SIMMONS ADMIT DATE: 10/04/19/ER Draft Date of Exam:10/04/19 CHEST 1 VIEW, AP/PA ONLY INDICATION: Flu symptoms. COMPARISON: Prior examination from 04/18/2019. EXAMINATION: Single view of the chest was obtained. FINDINGS: The heart size, mediastinal configuration, and pulmonary vascularity are within normal limits. There is no pleural effusion, pneumothorax or pneumonia. The osseous structures are unremarkable. IMPRESSION: No acute cardiopulmonary abnormality. Dictated on workstation # [id number] Dict: 10/04/19 1848 Trans: 10/04/19 1851 [facility] [id number] Interpreted by: MC GARCIA MD Electronically signed by: Reviewed: Reviewed by Me Departure Impression Primary Impression: Influenza A Disposition: 01 HOME, SELF-CARE Condition: Improved Departure-Patient Inst. Decision time for Depature: 20:00 Referrals: SONIA SANTOS DO (PCP/Family) Primary Care Physician Patient Instructions: Flu, Adult (DC) Add. Discharge Instructions: Increase fluids, 16 ounces of water every 2 hours while awake. Continue with her home medications. Follow up with your primary care provider or dispatch lead if symptoms are not improving or worsen. You will have muscle aches, intermittent fevers and cough for approximately 5-7 days with influenza. Alternate Tylenol 650 mg and ibuprofen 600 mg every 4 hours for pain or fever. Take the Tamiflu one tablet twice daily for 5 days. Use the Zofran 1 tablet every 6-8 hours as needed for nausea or vomiting. Return to the emergency department for chest pain, shortness of breath, fever greater than 101 not relieved by Tylenol and ibuprofen, or new, urgent health care needs. All discharge instructions reviewed with patient and/or family. Voiced understanding. Work/School Note: Work Release Form Date Seen in the Emergency Department: Oct 04, 2019 Return to Work: Oct 08, 2019 Other Restrictions Listed Below: May return to work when fever free without medication for 24 hours. Copy Copies To 1: Jessica VELA MD Copies To 2: SONIA SANTOS AMY ARNP Oct 04, 2019 18:57
[2019-10-04] MEDS ORDERED: ACETAMINOPHEN 500 MG TAB (TYLENOL) PO STA (19:32)
[2019-10-04] MEDS ORDERED: RX-OSELTAMIVIR 75 MG (TAMIFLU) BOX OF 10 PO STA (19:36)
[2019-10-04] MEDS ORDERED: RX-ONDANSETRON 4 MG ODT (ZOFRAN) PPK #4 PO STA (19:53)
[2019-10-04 20:30] VITALS: BP 144/94
== END 2019-10-04 20:30 | disposition home or self-care (01) ==
LOC: EDUNIT# 18:00 → ER 18:02
DX: J10.1 Influenza due to other identified influenza virus with other respiratory manifestations (principal); I10 Essential (primary) hypertension; E03.9 Hypothyroidism, unspecified; Z79.82 Long term (current) use of aspirin; Z87.891 Personal history of nicotine dependence
CPT/HCPCS: 36415; 71045; 80053; 83735; 83874; 84484; 85007; 85027; 85610; 85730; 86308; 93005; 93041

== ENCOUNTER → 2021-08-15 | Outpatient (CLI) | payer OTHER ==
[2021-08-15 14:08] LABS: ABSOLUTE RETIC # 108 10e9/uL (24-90); BASOPHILS # (AUTO) 3.1 10^3/uL (0.0-0.1); BASOPHILS % (AUTO) 4 % (0-10); EOSINOPHILS # (AUTO) 0.4 10^3/uL (0.0-0.3); EOSINOPHILS % (AUTO) 1 % (0-10); HEMATOCRIT 44 % (40-54); HEMOGLOBIN 14.1 g/dL (13.3-17.7); LYMPHOCYTES # (AUTO) 5.1 10^3/uL (1.0-4.0); LYMPHOCYTES % (AUTO) 7 % (12-44); MEAN CORPUSCULAR HEMOGLOBIN 29 pg (25-34); MEAN CORPUSCULAR HGB CONC 32 g/dL (32-36); MEAN CORPUSCULAR VOLUME 90 fL (80-99); MEAN PLATELET VOLUME 9.4 fL (9.0-12.2); MONOCYTES # (AUTO) 4.7 10^3/uL (0.0-1.0); MONOCYTES % (AUTO) 6 % (0-12); NEUTROPHILS # (AUTO) 40.4 10^3/uL (1.8-7.8); NEUTROPHILS % (AUTO) 55 % (42-75); PLATELET COUNT 284 10^3/uL (130-400); RETICULOCYTE % 2.22 % (0.50-2.40)
[2021-08-15 14:41] LABS: INR 1.3 (0.8-1.4); PROTHROMBIN TIME PATIENT 16.3 SEC (12.2-14.7)
[2021-08-15 14:42] LABS: FIBRIN DEGRADATION PRODUCTS 0.58 UG/ML (0.00-0.49)
[2021-08-15 14:45] LABS: WHITE BLOOD COUNT 74.1 10^3/uL (4.3-11.0)
[2021-08-15 15:23] LABS: BAND NEUTROPHILS 13 %; BASOPHILS % (MANUAL) 2 %; EOSINOPHILS % (MANUAL) 2 %; LYMPHOCYTES % (MANUAL) 3 %; MONOCYTES % (MANUAL) 7 %; NEUTROPHILS % (MANUAL) 52 %
[2021-08-15 15:24] LABS: METAMYELOCYTES % 20 %; MYELOCYTES % 1 %; RBC MORPH NORMAL
== END ==
LOC: LAB 13:33
PROVIDERS: ATTEND Family Medicine
DX: D72.829 Elevated white blood cell count, unspecified (principal)
CPT/HCPCS: 36415; 85007; 85027; 85045; 85055; 85379; 85384; 85610; 85730; 88377

== ENCOUNTER 2021-08-25 07:21 | Day surgery (SDC) | payer OTHER ==
--- NOTE | 2021-08-24 09:11 | HISTORY AND PHYSICAL ---
DATE OF SERVICE: DATE OF ADMISSION: 08/25/2021. For clearance to have bone marrow biopsy done. 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 ALLERGIC TO MEDICATIONS: Denies. MEDICATIONS NOW ON: Crestor 5 mg, Flomax 0.4, trazodone 50 mg at bedtime p.r.n., loratadine 10 mg p.r.n., diltiazem CD 120/24 one daily, levothyroxine 0.125, and ____. PAST SURGICAL HISTORY: Rotator cuff right shoulder, heart ablation, and tonsils in third grade. FAMILY HISTORY: Dad had prostate cancer and diabetes. Denies asthma, TB, heart disease, lung disease. REVIEW OF SYSTEMS: HEAD: Denies headache, dizziness, fainting. EYES, EARS, NOSE AND THROAT: Denies diplopia, tinnitus, sore throat. CARDIOVASCULAR: Denies chest pain, shortness of breath, had atrial fibrillation with ablation, doing good. The patient released by cardiology. LUNGS: Denies asthma, TB, coughing, congestion, wheezing. GASTROINTESTINAL: Appetite good. Denies blood in stools, diarrhea, constipation, ulcer, vomiting. GENITOURINARY: Denies blood in stool, frequency. PHYSICAL EXAMINATION: GENERAL: The patient is a white male, well nourished, well developed, in no acute respiratory distress at rest. EARS: No discharge. EYES: No conjunctivitis or icterus. THROAT: Noninflamed. NECK: Thyroid not enlarged. No abnormal cervical lymphadenopathy noted. HEART: Regular rate and rhythm. LUNGS: Clear to auscultation. ABDOMEN: Soft. Liver and spleen not palpable. Good bowel sounds. ASSESSMENT AND PLAN: The patient is cleared for surgery. Job ID: [id number] DocumentID: [id number] Dictated Date: 08/23/2021 12:56:47 Front Office Java Developer Date: 08/23/2021 16:54:06 Dictated By: SONIA SANTOS DO
[~2021-08-25] VITALS: Ht 175.3 cm; Wt 96.2 kg
[2021-08-25] MEDS ORDERED: fentaNYL INJ 100 MCG/2 ML AMP IVP ONE (08:15)
[2021-08-25] MEDS ORDERED: LIDOCAINE 1% INJ 20 ML VIAL INJ ONE (08:15)
[2021-08-25] MEDS ORDERED: MIDAZOLAM 2 MG/2 ML (VERSED) VIAL IVP ONE (08:15)
[2021-08-25] MEDS ORDERED: fentaNYL INJ 100 MCG/2 ML AMP ONE (08:35)
[2021-08-25] MEDS ORDERED: LIDOCAINE 1% INJ 20 ML VIAL ONE (08:35)
[2021-08-25] MEDS ORDERED: NS IV 1000 ML 1,000 ML ONE (08:35)
[2021-08-25] MEDS ORDERED: MIDAZOLAM 2 MG/2 ML (VERSED) VIAL ONE (08:35)
[2021-08-25 08:55] LABS: ABSOLUTE RETIC # 120 10e9/uL (24-90); BASOPHILS # (AUTO) 2.6 10^3/uL (0.0-0.1); BASOPHILS % (AUTO) 5 % (0-10); EOSINOPHILS # (AUTO) 0.3 10^3/uL (0.0-0.3); EOSINOPHILS % (AUTO) 1 % (0-10); HEMATOCRIT 50 % (40-54); HEMOGLOBIN 15.7 g/dL (13.3-17.7); LYMPHOCYTES # (AUTO) 3.8 10^3/uL (1.0-4.0); LYMPHOCYTES % (AUTO) 8 % (12-44); MEAN CORPUSCULAR HEMOGLOBIN 29 pg (25-34); MEAN CORPUSCULAR HGB CONC 32 g/dL (32-36); MEAN CORPUSCULAR VOLUME 92 fL (80-99); MEAN PLATELET VOLUME 10.1 fL (9.0-12.2); MONOCYTES # (AUTO) 2.6 10^3/uL (0.0-1.0); MONOCYTES % (AUTO) 5 % (0-12); NEUTROPHILS # (AUTO) 27.4 10^3/uL (1.8-7.8); NEUTROPHILS % (AUTO) 54 % (42-75); PLATELET COUNT 232 10^3/uL (130-400); RETICULOCYTE % 2.23 % (0.50-2.40)
[2021-08-25 08:57] LABS: WHITE BLOOD COUNT 50.6 10^3/uL (4.3-11.0)
[2021-08-25 09:00] LABS: INR 1.3 (0.8-1.4); PROTHROMBIN TIME PATIENT 16.9 SEC (12.2-14.7)
[2021-08-25 09:11] LABS: BAND NEUTROPHILS 7 %; BASOPHILS % (MANUAL) 5 %; EOSINOPHILS % (MANUAL) 1 %; LYMPHOCYTES % (MANUAL) 7 %; MONOCYTES % (MANUAL) 7 %; MYELOCYTES % 15 %; NEUTROPHILS % (MANUAL) 58 %; POLYCHROMASIA SLIGHT
[2021-08-25] MEDS ORDERED: HYDROcodone/APAP 5 MG/325 MG (LORTAB) TAB PO PRN (09:15)
[2021-08-25 09:43] VITALS: BP 155/99
[2021-08-25 09:55] VITALS: BP 157/100
--- NOTE | 2021-08-25 10:16 | Pre-Op Note & Conscious Sedat ---
Pre-Operative Progress Note H&P Reviewed The H&P was reviewed, patient examined and no changes noted. Date H&P Reviewed: Aug 25, 2021 Time H&P Reviewed: 09:00 Pre-Op Diagnosis: elevated wbc Conscious Sedation Pre-Proced Time 09:00 ASA Score 2 For ASA 3 and 4: Consider anesthesia and medical clearance. Also, for patients with a history of failed moderate sedation consider anesthesia. Airway Lungs Heart ASA score ASA 1: a normal healthy patient ASA 2: a patient with a mild systemic disease (mid diabetes, controlled hypertension, obesity ASA 3: a patient with a severe systemic disease that limits activity (angina, COPD, prior Myocardial infarction) ASA 4: a patient with an incapacitating disease that is a constant threat to life (CHF, renal failure) ASA 5: a moribund patient not expected to survive 24 hrs. (ruptured aneurysm) ASA 6: a declared brain- patient whose organs are being harvested. For emergent operations, add the letter E after the classification Mallampati Classification Grade 2 Sedation Plan Analgesia, Amnesia, Plan communicated to team members, Discussed options with patient/fam, Discussed risks with patient/fam The patient is an appropriate candidate to undergo the planned procedure, sedation, and anesthesia. The patient immediately re-assessed prior to indication. LEON CASEY MD Aug 25, 2021 10:16
--- NOTE | 2021-08-25 10:44 | Diagnostic Imaging Report ---
INDICATION: Elevated white blood cell count. PROCEDURE: The patient presents for CT-guided bone marrow aspiration and biopsy. The patient was brought to the CT suite, placed on the table in the prone position. Axial imaging through the pelvis was performed to evaluate appropriate entry site. Low back was prepped and draped in the usual sterile fashion. A small amount of 1% lidocaine was utilized for local anesthesia. The procedure was performed utilizing conscious sedation with radiology nursing and constant patient monitoring. The patient was given a total 1 mg of Versed intravenously and 50 mcg of fentanyl intravenously. Total procedure time is approximately 10 minutes. A bone marrow biopsy needle was advanced and placed with its tip along the posterior cortex of the right iliac bone. The needle was advanced through the cortex utilizing a bone marrow drill. Two bone marrow aspirates were then obtained. Next, the drill was utilized to obtain a bone marrow core sample. Needle was removed and hemostasis was obtained. The patient tolerated the procedure well and left the department in stable condition. IMPRESSION: Successful CT-guided bone marrow aspiration and core biopsy utilizing conscious sedation. Pathology results are currently pending. Dictated by: Dictated on workstation # [id number]
[2021-08-25 12:00] VITALS: BP 150/92
== END 2021-08-25 12:09 | disposition home or self-care (01) ==
LOC: RAD 07:21
PROVIDERS: ATTEND Internal Medicine Hematology & Oncology
DX: D72.829 Elevated white blood cell count, unspecified (principal)
CPT/HCPCS: 36415; 38222; 77012; 85007; 85027; 85045; 85610; 85730; 88237; 88264

== ENCOUNTER → 2023-02-11 | Outpatient (CLI) | payer OTHER ==
[~2023-02-11] MED LIST changes: +ROSU5TAB13 PO; +[UNRECOGNIZED DRUG - OTHER] PO
--- NOTE | 2023-02-11 14:01 | Diagnostic Imaging Report ---
INDICATION: Right hip pain. TECHNIQUE: AP and oblique views of the right hip were obtained. FINDINGS: No fracture or acute bony abnormality is seen. There is moderate to severe degenerative change of the right hip with joint space narrowing and osteophyte formation of the acetabulum and femoral neck osteophyte formation. IMPRESSION: Degenerative changes of the right hip with no acute abnormality. Dictated by: Dictated on workstation # [id number]
== END ==
LOC: RAD 10:07
PROVIDERS: ATTEND Family Medicine
DX: M16.11 Unilateral primary osteoarthritis, right hip (principal)
CPT/HCPCS: 73502

== ENCOUNTER 2023-02-13 09:46 | Observation (INO) | payer OTHER ==
[~2023-02-13] VITALS: Ht 182.8 cm; Wt 102.5 kg
[~2023-02-13 09:46] MED LIST changes: -ROSU5TAB13 PO; -[UNRECOGNIZED DRUG - OTHER] PO
--- NOTE | 2023-02-13 10:00 | ED General ---
General Chief Complaint: Chest Pain Stated Complaint: BACK AND LT ARM PAIN Source of Information: Patient Exam Limitations: No Limitations History of Present Illness Date Seen by Provider: Feb 13, 2023 Time Seen by Provider: 09:50 Initial Comments 67-year-old male with history of high blood pressure high cholesterol, CML presents to the emergency department today for pain between his shoulder blades into his left shoulder. He states symptoms started about 830 this morning and have been constant. Pain is worse with palpation and causing him to be slightly short of breath due to the intensity of the pain. No recent fevers chills cough abdominal pain, change in bowel or bladder habits. No cardiac history outside of atrial fibrillation for which she had an ablation 4 years ago and has not had a recurrence of symptoms since that time. He states he had a heart cath that was negative at that time. He was given a full dose aspirin prior to arrival by Dr. SANTOS. And was sent for further evaluation. All other systems reviewed and negative except documented per HPI. Voice recognition software was used to help create this chart Allergies and Home Medications Allergies Coded Allergies: Maxwell Known Allergies (Verified Allergy, Mild, 08/25/21) Patient Home Medication List Home Medication List Reviewed: Yes Acetaminophen (Tylenol) 325 Mg Tablet, 650 MG PO Q8H PRN for PAIN-MILD (0-3), (Reported) Entered as Reported by: GOMEZ MELÉNDEZ on 06/22/19737 Aspirin (Aspirin EC) 325 Mg Tablet.dr, 325 MG PO 1800, (Reported) Entered as Reported by: GOMEZ MELÉNDEZ on 06/22/19737 Diltiazem HCl (Cartia Xt) 120 Mg Cap.er.24h, 120 MG PO 1800, (Reported) Entered as Reported by: GOMEZ MELÉNDEZ on 06/22/19 07 Ibuprofen (Ibuprofen) 200 Mg Tablet, 400 MG PO Q8H PRN for PAIN-MILD (0-3), (Reported) Entered as Reported by: GOMEZ MELÉNDEZ on 06/22/19737 Levothyroxine Sodium (Levothyroxine Sodium) 125 Mcg Tablet, 125 MCG PO 0300, (Reported) Entered as Reported by: GOMEZ MELÉNDEZ on 06/22/19 0737 Loratadine (Loratadine) 10 Mg Tablet, 10 MG PO DAILY PRN for ALLERGY SYMPTOMS, (Reported) Entered as Reported by: GOMEZ MELÉNDEZ on 06/22/1938 Simvastatin (Simvastatin) 10 Mg Tablet, 10 MG PO 1800, (Reported) Entered as Reported by: GOMEZ MELÉNDEZ on 06/22/19737 Trazodone HCl (Trazodone HCl) 50 Mg Tablet, 50 MG PO 1200 PRN for SLEEP, (Reported) Entered as Reported by: GOMEZ MELÉNDEZ on 06/22/19 0747 [Testost 10% W/ Vanic] CR, 0.5 ML TOP DAILY, (Reported) Entered as Reported by: GOMEZ MELÉNDEZ on 06/22/19 0741 Review of Systems Review of Systems Constitutional: see HPI Past Tiaihhe-Fuccue-Iqjpta Hx Patient Social History Tobacco Use?: No Use of E-Cig and/or Vaping dev: No Substance use?: No Alcohol Use?: No Past Medical History Surgeries: Yes (ROTATOR CUFF REPAIR) Tonsillectomy Respiratory: No Currently Using CPAP: No Currently Using BIPAP: No Cardiac: Yes (Ablation ) Hypertension Neurological: No Reproductive Disorders: No Genitourinary: No Gastrointestinal: Yes Gastroesophageal Reflux Endocrine: Yes (TAKES THYROID MED) Hypothyroidsim HEENT: No Cancer: No Psychosocial: No Integumentary: No Blood Disorders: No Physical Exam Vital Signs Vital Signs - First Documented 02/13/23 09:47 Temp 35.7 Pulse 68 Resp 16 B/P (MAP) 189/110 (136) Pulse Ox 99 O2 Delivery Room Air Capillary Refill : Height, Weight, BMI Height: 5'11.00" Weight: 175lbs. oz. 79.693595us; 28.00 BMI Method:Stated General Appearance: No Apparent Distress, WD/WN Eyes: Bilateral Eye Normal Inspection, Bilateral Eye PERRL, Bilateral Eye EOMI HEENT: Normal ENT Inspection, Pharynx Normal Neck: Full Range of Motion, Normal Inspection, Non Tender, Supple Respiratory: Lungs Clear, Normal Breath Sounds, No Accessory Muscle Use, No Respiratory Distress, Other (Tenderness palpation left back just medial to the scapula. No skin changes.) Cardiovascular: Regular Rate, Rhythm, No Edema, No Murmur, Normal Peripheral Pulses Gastrointestinal: Normal Bowel Sounds, No Organomegaly, Non Tender, Soft Extremity: Normal Capillary Refill, Normal Inspection, Non Tender, No Calf Tenderness, No Pedal Edema Neurologic/Psychiatric: Alert, Oriented x3 Skin: Normal Color, Warm/Dry Progress/Results/Core Measures Suspected Sepsis SIRS Temperature: Pulse: Respiratory Rate: Laboratory Tests 02/13/23 09:55: White Blood Count 5.9 Blood Pressure / Mean: Laboratory Tests 02/13/23 09:55: Creatinine 1.30, Platelet Count 217, Total Bilirubin 0.5 Results/Orders Lab Results Laboratory Tests Test 02/13/23 09:55 02/13/23 11:55 Range/Units White Blood Count 5.9 4.3-11.0 10^3/uL Red Blood Count 4.46 4.30-5.52 10^6/uL Hemoglobin 13.6 13.3-17.7 g/dL Hematocrit 40 40-54 % Mean Corpuscular Volume 90 80-99 fL Mean Corpuscular Hemoglobin 31 25-34 pg Mean Corpuscular Hemoglobin Concent 34 32-36 g/dL Red Cell Distribution Width 13.7 10.0-14.5 % Platelet Count 217 130-400 10^3/uL Mean Platelet Volume 9.1 9.0-12.2 fL Immature Granulocyte % (Auto) 0 % Neutrophils (%) (Auto) 53 42-75 % Lymphocytes (%) (Auto) 36 12-44 % Monocytes (%) (Auto) 8 0-12 % Eosinophils (%) (Auto) 3 0-10 % Basophils (%) (Auto) 1 0-10 % Neutrophils # (Auto) 3.1 1.8-7.8 10^3/uL Lymphocytes # (Auto) 2.1 1.0-4.0 10^3/uL Monocytes # (Auto) 0.5 0.0-1.0 10^3/uL Eosinophils # (Auto) 0.2 0.0-0.3 10^3/uL Basophils # (Auto) 0.0 0.0-0.1 10^3/uL Immature Granulocyte # (Auto) 0.0 0.0-0.1 10^3/uL Sodium Level 141 135-145 MMOL/L Potassium Level 3.9 3.6-5.0 MMOL/L Chloride Level 107 98-107 MMOL/L Carbon Dioxide Level 24 21-32 MMOL/L Anion Gap 10 5-14 MMOL/L Blood Urea Nitrogen 14 7-18 MG/DL Creatinine 1.30 0.60-1.30 MG/DL Estimat Glomerular Filtration Rate 61 BUN/Creatinine Ratio 11 Glucose Level 114 H 70-105 MG/DL Calcium Level 9.5 8.5-10.1 MG/DL Corrected Calcium 9.2 8.5-10.1 MG/DL Magnesium Level 2.0 1.6-2.4 MG/DL Total Bilirubin 0.5 0.1-1.0 MG/DL Aspartate Amino Transf (AST/SGOT) 24 5-34 U/L Alanine Aminotransferase (ALT/SGPT) 24 0-55 U/L Alkaline Phosphatase 52 40-136 U/L Troponin I < 0.028 < 0.028 <0.028 NG/ML Total Protein 7.7 6.4-8.2 GM/DL Albumin 4.4 3.2-4.5 GM/DL My Orders Orders - ELIGIOOLVIN Nguyen DO Ekg Tracing (02/13/23 09:51) Ekg Tracing (02/13/23 09:51) Cbc With Automated Diff (02/13/23 09:57) Magnesium (02/13/23 09:57) Chest 1 View, Ap/Pa Only (02/13/23 09:57) Comprehensive Metabolic Panel (02/13/23 09:57) Monitor-Rhythm Ecg Trace Only (02/13/23 09:57) Ed Iv/Invasive Line Start (02/13/23 09:57) Troponin I Yas (02/13/23 09:57) Ketorolac Injection (Toradol Injection) (02/13/23 10:15) Morphine Injection (Morphine Injection (02/13/23 10:44) Troponin I Drew (02/13/23 11:45) Iv/Invasive Line Insertion .IV INSERT (02/13/23 11:29) Fentanyl Inj (Sublimaze Injection) (02/13/23 11:30) Ondansetron Injection (Zofran Injectio (02/13/23 11:30) Fentanyl Inj (Sublimaze Injection) (02/13/23 12:45) Medications Given in ED Current Medications Medications Dose Ordered Sig/Kassi Route Start Time Stop Time Status Last Admin Dose Admin Fentanyl Citrate 50 mcg ONCE ONCE IVP 02/13/23 12:45 02/13/23 12:46 DC 02/13/23 12:48 50 MCG Ketorolac Tromethamine 15 mg ONCE ONCE IVP 02/13/23 10:15 02/13/23 10:16 DC 02/13/23 10:17 15 MG Vital Signs/I&O 02/13/23 09:47 Temp 35.7 Pulse 68 Resp 16 B/P (MAP) 189/110 (136) Pulse Ox 99 O2 Delivery Room Air Capillary Refill : ECG Initial ECG Impression Time: 09:52 Comment Sinus rhythm with a rate of 75 bpm. Normal intervals. Left axis deviation. No ST or T wave abnormalities. No ectopy. No STEMI. EKG : EKG Time: 11:19 Comment Sinus bradycardia 53 beats minute. Normal intervals. Left axis deviation. T wave versions in [address] abnormalities. No ectopy. No STEMI. Departure Communication (Admissions) Patient is hemodynamically stable. His pain is somewhat reproducible on exam but not wholly. He did have significant mount of pain throughout his emergency department stay. Initially gave him some Toradol which did really help. I then give him some morphine which did drop his heart rate temporarily into the upper 40s and lower 50s. This resolved spontaneously very rapidly. Repeat EKG during that time shows some T wave inversions in 3 and aVF but no other acute changes. She sets of cardiac enzymes are negative and he has nonischemic EKGs at this t jordin. He does continue to have significant amounts of pain. I spoke with Dr. Marquez early on in the patient's course when he dropped his heart rate with morphine. He request admission to the hospital service for further evaluation and treatment recommendations. He does not need to be n.p.o. according to Dr. Crocker. I spoke with Dr. Ruiz who accepts the patient in admission at this time. I have independently reviewed his chest x-ray there is no acute abnormality. Lab work-up is unremarkable on my review. Impression Primary Impression: Chest pain Qualified Codes: R07.9 - Chest pain, unspecified Disposition: ADMITTED INPATIENT Condition: Stable Admissions Decision to Admit Reason: Admit from ER (General) Departure-Patient Inst. Referrals: SONIA SANTOS DO (PCP/Family) Primary Care Physician OLVIN DEL VALLE DO Feb 13, 2023 10:00
[2023-02-13 10:01] LABS: BASOPHILS % (AUTO) 1 % (0-10); EOSINOPHILS # (AUTO) 0.2 10^3/uL (0.0-0.3); EOSINOPHILS % (AUTO) 3 % (0-10); HEMATOCRIT 40 % (40-54); HEMOGLOBIN 13.6 g/dL (13.3-17.7); LYMPHOCYTES # (AUTO) 2.1 10^3/uL (1.0-4.0); LYMPHOCYTES % (AUTO) 36 % (12-44); MEAN CORPUSCULAR HEMOGLOBIN 31 pg (25-34); MEAN CORPUSCULAR HGB CONC 34 g/dL (32-36); MEAN CORPUSCULAR VOLUME 90 fL (80-99); MEAN PLATELET VOLUME 9.1 fL (9.0-12.2); MONOCYTES # (AUTO) 0.5 10^3/uL (0.0-1.0); MONOCYTES % (AUTO) 8 % (0-12); NEUTROPHILS # (AUTO) 3.1 10^3/uL (1.8-7.8); NEUTROPHILS % (AUTO) 53 % (42-75); PLATELET COUNT 217 10^3/uL (130-400); WHITE BLOOD COUNT 5.9 10^3/uL (4.3-11.0)
--- NOTE | 2023-02-13 10:04 | Diagnostic Imaging Report ---
EXAMINATION: Chest, 1 view. HISTORY: Chest pain. COMPARISON: 10/04/2019. FINDINGS: The lung volumes are normal. No focal consolidation is seen. No large pleural effusion or pneumothorax is seen. The cardiomediastinal silhouette is normal in size and contour. No acute osseous abnormality is seen. IMPRESSION: No acute pleuroparenchymal process. Dictated by: Dictated on workstation # [id number]
[2023-02-13] MEDS ORDERED: KETOROLAC 15 MG/ML VIAL IVP ONE (10:15)
[2023-02-13 10:16] LABS: ALBUMIN 4.4 GM/DL (3.2-4.5); CHLORIDE 107 MMOL/L (98-107); POTASSIUM 3.9 MMOL/L (3.6-5.0); SODIUM 141 MMOL/L (135-145)
[2023-02-13 10:17] LABS: CALCIUM 9.5 MG/DL (8.5-10.1)
[2023-02-13 10:18] LABS: GLUCOSE 114 MG/DL (70-105); TOTAL PROTEIN 7.7 GM/DL (6.4-8.2)
[2023-02-13 10:19] LABS: CARBON DIOXIDE 24 MMOL/L (21-32)
[2023-02-13 10:20] LABS: BILIRUBIN,TOTAL 0.5 MG/DL (0.1-1.0)
[2023-02-13 10:21] LABS: ALKALINE PHOSPHATASE 52 U/L (40-136)
[2023-02-13 10:22] LABS: GFR ESTIMATED 61
[2023-02-13 10:23] LABS: BUN/CREATININE RATIO 11
[2023-02-13 10:25] LABS: ALANINE AMINOTRANSFERASE 24 U/L (0-55)
[2023-02-13] MEDS ORDERED: morphine INJ 10 MG/ML 1ML (SYR OR VIAL) IVP STA (10:44)
[2023-02-13] MEDS ORDERED: fentaNYL INJ 100 MCG/2 ML AMP IVP ONE ×2 (11:30→12:45)
[2023-02-13] MEDS ORDERED: ONDANSETRON 4 MG/2 ML (SDV) Z0FRAN IVP ONE (11:30)
[2023-02-13 14:11] VITALS: BP 186/99
--- NOTE | 2023-02-13 14:14 | Consultation-Cardiology ---
HPI-Cardiology Cardiology Consultation: Date of Consultation 02/13/23 Time Seen by a Provider: 15:00 Date of Admission 02-13-23 Attending Physician Tom Waldrop DO Admitting Physician Admitting Physician: Brandy Ruiz MD Attending Physician: Brandy Ruiz MD Consulting Physician Eleazar Pereira MD HPI: Chief Complaint: Chest pain Mr. Henry is a 67 yr old male admitted to [facility] from the ED with chest discomfort. He reports he got up this morning; had showered and was putting on deodorant when he developed sharp stabbing pain in between in his shoulders that radiated through to his chest. He reports he developed numbness in his left arm and first 3 digits. He reports the pain was constant, but the intensity would come and go. No SOB, palpitations, diaphoresis, n/v. He reports he has chronic bilat LE swelling which is unchanged. He reports the discomfort in between his shoulder blades is better, but not completely gone. Review of Systems-Cardiology Review of Systems Constitutional: No chills, No fever, No malaise Eyes: No vision change Ears/Nose/Throat: No epistaxis, No recent hearing loss Respiratory: As described under HPI Cardiovascular: As described under HPI Gastrointestinal: No diarrhea, No nausea, No vomiting Genitourinary: No hematuria Musculoskeletal: As describe under HPI Skin: No rash on exposed areas, No ulcerations on exposed areas Psychiatric/Neurological: No anxiety, No depression, No seizure, No focal weakness, No syncope Hematologic: No bleeding abnormalities LXX-Bkzhus-Hqajcm Hx Patient Social History Smoking Status: Former Smoker 2nd Hand Smoke Exposure: No Alcohol Use?: No Past Medical History PMH As described under Assessment. Family Medical History Family Medical History: He reports he has a sister who has a pacemaker. No family h/o CAD. Allergies and Home Medications Allergies Coded Allergies: NKANo Known Allergies (Verified Allergy, Mild, 08/25/21) Patient Home Medication List Acetaminophen (Tylenol) 325 Mg Tablet, 650 MG PO Q8H PRN for PAIN-MILD (0-3), (Reported) Entered as Reported by: GOMEZ MELÉNDEZ on 06/22/19 07 Aspirin (Aspirin EC) 325 Mg Tablet.dr, 325 MG PO 1800, (Reported) Entered as Reported by: GOMEZ MELÉNDEZ on 06/22/19 0738 Diltiazem HCl (Cartia Xt) 120 Mg Cap.er.24h, 120 MG PO 1800, (Reported) Entered as Reported by: GOMEZ MELÉNDEZ on 06/22/19 0746 Ibuprofen (Ibuprofen) 200 Mg Tablet, 400 MG PO Q8H PRN for PAIN-MILD (0-3), (Reported) Entered as Reported by: GOMEZ MELÉNDEZ on 06/22/19 0738 Levothyroxine Sodium (Levothyroxine Sodium) 125 Mcg Tablet, 125 MCG PO 0300, (Reported) Entered as Reported by: GOMEZ MELÉNDEZ on 06/22/19 0737 Loratadine (Loratadine) 10 Mg Tablet, 10 MG PO DAILY PRN for ALLERGY SYMPTOMS, ( Reported) Entered as Reported by: GOMEZ MELÉNDEZ on 06/22/19 07 Simvastatin (Simvastatin) 10 Mg Tablet, 10 MG PO 1800, (Reported) Entered as Reported by: GOMEZ MELÉNDEZ on 06/22/19 07 Trazodone HCl (Trazodone HCl) 50 Mg Tablet, 50 MG PO 1200 PRN for SLEEP, (Reported) Entered as Reported by: GOMEZ MELÉNDEZ on 06/22/19 0747 [Testost 10% W/ Vanic] CR, 0.5 ML TOP DAILY, (Reported) Entered as Reported by: GOMEZ MELÉNDEZ on 06/22/19 0741 Physical Exam-Cardiology Physical Exam Vital Signs/I&O 02/13/23 02/13/23 02/13/23 02/13/23 09:47 14:00 14:11 15:02 Temp 35.7 36.7 Pulse 68 64 64 80 Resp 16 16 20 B/P (MAP) 189/110 (136) 175/102 186/99 (128) Pulse Ox 99 98 98 O2 Delivery Room Air Room Air Room Air Capillary Refill : Less Than 3 Seconds Constitutional: AAO x 3, well-developed, well-nourished HEENT: PERRL, hearing is well preserved, oral hygience is good Neck: No carotid bruit; carotid pulses are 2 + bilaterally Respiratory: No accessory muscle use, No respiratory distress; chest expansion is symmetric, chest is bilaterally symmetric, lungs clear to auscultation Cardiovascular: regular rate-rhythm; No JVD; S1 and S2 Gastrointestinal: No tender; soft, round; No guarding; audible bowel sounds Extremities: no lower extremity edema bilateral Neurologic/Psychiatric: other (moves all extremities) Skin: No rash on exposed areas, No ulcerations on exposed areas Data Review Labs Laboratory Tests 02/13/23 09:55: White Blood Count 5.9, Red Blood Count 4.46, Hemoglobin 13.6, Hematocrit 40, Mean Corpuscular Volume 90, Mean Corpuscular Hemoglobin 31, Mean Corpuscular Hemoglobin Concent 34, Red Cell Distribution Width 13.7, Platelet Count 217, Mean Platelet Volume 9.1, Immature Granulocyte % (Auto) 0, Neutrophils (%) (Auto) 53, Lymphocytes (%) (Auto) 36, Monocytes (%) (Auto) 8, Eosinophils (%) (Auto) 3, Basophils (%) (Auto) 1, Neutrophils # (Auto) 3.1, Lymphocytes # (Auto) 2.1, Monocytes # (Auto) 0.5, Eosinophils # (Auto) 0.2, Basophils # (Auto) 0.0, Immature Granulocyte # (Auto) 0.0, Sodium Level 141, Potassium Level 3.9, Chloride Level 107, Carbon Dioxide Level 24, Anion Gap 10, Blood Urea Nitrogen 14, Creatinine 1.30, Estimat Glomerular Filtration Rate 61, BUN/Creatinine Ratio 11, Glucose Level 114H, Calcium Level 9.5, Corrected Calcium 9.2, Magnesium Level 2.0, Total Bilirubin 0.5, Aspartate Amino Transf (AST/SGOT) 24, Alanine Aminotransferase (ALT/SGPT) 24, Alkaline Phosphatase 52, Troponin I < 0.028, Total Protein 7.7, Albumin 4.4 02/13/23 11:55: Troponin I < 0.028 Radiology NAME: [facility] REC#: [id number] PT STATUS: REG ER : 1955 PHYSICIAN: OLVIN DEL VALLE DO ADMIT DATE: 02/13/23/ER Signed Date of Exam:02/13/23 CHEST 1 VIEW, AP/PA ONLY EXAMINATION: Chest, 1 view. HISTORY: Chest pain. COMPARISON: 10/04/2019. FINDINGS: The lung volumes are normal. No focal consolidation is seen. No large pleural effusion or pneumothorax is seen. The cardiomediastinal silhouette is normal in size and contour. No acute osseous abnormality is seen. IMPRESSION: No acute pleuroparenchymal process. Dictated by: Dictated on workstation # [id number] Dict: 02/13/23 1003 Trans: 02/13/23 1006 [id number] Interpreted by: NANO VYAS DO Electronically signed by: NANO VYAS DO 02/13/23 1006 ECG Impression ECG Initial ECG Rhythm: Normal Sinus A/P-Cardiology Assessment/Admission Diagnosis Non-specific chest pain H/O Successful typical AVNRT ablation on 06-22-[address] Tam CAD - Mild CAD on coronary angiography by Dr. Tam on 06-23-19 HTN HLD CML - managed by Dr. Broussard Discussion and Recomendations Non-specific chest discomfort - no evidence of ACS thus far - echocardiogram to eval structure and function - advise MPI tomorrow Continue home medications Monitor lab closely Further recs will be based on his hospital course We would like to thank medical services for this consult JOSE MARIA MILLER Feb 13, 2023 14:14
[2023-02-13] MEDS ORDERED: BISACODYL 10 MG SUPP (DULCOLAX) PR PRN (14:45)
[2023-02-13] MEDS ORDERED: ANTACID SUSP 30 ML UDC (MYLANTA) PO PRN (14:45)
[2023-02-13] MEDS ORDERED: ACETAMINOPHEN 325 MG TABLET PO PRN (14:45)
[2023-02-13] MEDS ORDERED: ONDANSETRON 4 MG (ZOFRAN) ORAL DISSOLVE TAB PO PRN (14:45)
[2023-02-13] MEDS ORDERED: fentaNYL INJ 100 MCG/2 ML AMP IVP PRN (14:45)
[2023-02-13] MEDS ORDERED: ONDANSETRON 4 MG/2 ML (SDV) Z0FRAN IV PRN (14:45)
[2023-02-13] MEDS ORDERED: CALCIUM CARBONATE 500 MG (TUMS) TAB.CHEW PO PRN (14:45)
[2023-02-13] MEDS ORDERED: MELATONIN 3 MG TABLET PO PRN (14:45)
[2023-02-13] MEDS ORDERED: diphenhydrAMINE 50 MG/ML INJ (BENADRYL) IVP PRN (14:45)
[2023-02-13] MEDS ORDERED: MILK OF MAGNESIA 400 MG/5 ML 30 ML UDC PO PRN (14:45)
[2023-02-13] MEDS ORDERED: diphenhydrAMINE 25 MG TAB (BENADRYL) PO PRN (14:45)
[2023-02-13] MEDS ORDERED: polyethylene glycoL POWDER 17 GM (MIRALAX) PACK PO PRN (14:45)
[2023-02-13] MEDS ORDERED: LACTULOSE SYRUP 10GM/15ML (ENULOSE) 30ML UDC PO PRN (14:45)
[2023-02-13] MEDS ORDERED: cloNIDine 0.1 MG (CATAPRES) TAB PO PRN (17:00)
[2023-02-13] MEDS ORDERED: lisINopril 10 MG (PRINIVIL) TABLET PO NR (17:15)
[2023-02-13 17:25] VITALS: BP 147/81
[2023-02-13] MEDS ORDERED: [UNRECOGNIZED DRUG - OTHER] PO (17:32)
[2023-02-13] MEDS ORDERED: ROSU5TAB13 PO (17:32)
[2023-02-13] MEDS ORDERED: PATIENT MAY USE OWN MEDS, ALL MC SCH (17:45)
[2023-02-13] MEDS ORDERED: TAMSULOSIN 0.4 MG (FLOMAX) CAP PO SCH (18:00)
[2023-02-13] MEDS: dilTIAZem120 MG (CARDIZEM CD) CAP PO SCH (18:20)
[2023-02-13] MEDS: ENOXAPARIN 40 MG/0.4 ML (LOVENOX) SYR SC SCH (18:24)
[2023-02-13] MEDS ORDERED: IMATINIB 400 MG TAB PO SCH (18:30)
[2023-02-13 20:58] VITALS: BP 130/81
[2023-02-13] MEDS ORDERED: ROSUVASTATIN 5 MG (CRESTOR) TABLET PO SCH (21:00)
[2023-02-13] MEDS ORDERED: traZODone 50 MG (DESYREL) TAB PO SCH (21:00)
[2023-02-13] MEDS: DOCUSATE SODIUM 100 MG (COLACE) CAP PO SCH (21:27)
[2023-02-13] MEDS: SENNOSIDES 8.6 MG (SENOKOT) TAB PO SCH (21:27)
[2023-02-14] VITALS: BP 111/71
[2023-02-14 04:59] VITALS: BP 93/56
[2023-02-14 05:12] LABS: TRIGLYCERIDES 276 MG/DL (<150); VLDL CHOLESTEROL 55 MG/DL (5-40)
[2023-02-14 05:17] LABS: CHOLESTEROL 110 MG/DL (< 200)
[2023-02-14 05:18] LABS: HDL CHOLESTEROL 28 MG/DL (40-60)
[2023-02-14] MEDS ORDERED: LEVOTHYROXINE 125 MCG (LEVOTHROID) TABLET PO SCH (06:30)
[2023-02-14] MEDS ORDERED: CATHETER FLUSH 10 ML SYR IVP PRN (07:00)
[2023-02-14] MEDS ORDERED: REGADENOSON 0.4 MG/5 ML SYR (LEXISCAN) IV ONE ×2 (07:41→08:15)
[2023-02-14 08:09] VITALS: BP 129/64
[2023-02-14] MEDS: dilTIAZem120 MG (CARDIZEM CD) CAP PO SCH (09:00)
[2023-02-14] MEDS: ENOXAPARIN 40 MG/0.4 ML (LOVENOX) SYR SC SCH (09:00)
[2023-02-14] MEDS: SENNOSIDES 8.6 MG (SENOKOT) TAB PO SCH (09:00)
[2023-02-14] MEDS ORDERED: lisINopril 10 MG (PRINIVIL) TABLET PO SCH (09:00)
[2023-02-14] MEDS: DOCUSATE SODIUM 100 MG (COLACE) CAP PO SCH (09:00)
[2023-02-14] MEDS ORDERED: dilTIAZem120 MG (CARDIZEM CD) CAP PO SCH (09:00)
[2023-02-14] MEDS ORDERED: ASPIRIN 81 MG CHEW (CHILDREN'S ASA) PO SCH (09:00)
[2023-02-14 09:04] VITALS: BP 139/78
--- NOTE | 2023-02-14 09:35 | Progress Note - Cardiology ---
Cardiology SOAP Progress Note Subjective: Continues to have mild to mod pain in between his shoulder blades with continue numbness in his left arm, albeit improved He reports the discomfort has never gone away since yesterday No c/o CP, palpitations or SOB Objective: I&O/Vital Signs 02/14/23 02/14/23 02/14/23 02/14/23 00:00 01:00 04:59 08:09 Temp 36.5 36.5 Pulse 77 80 74 65 Resp 18 18 B/P (MAP) 111/71 (84) 93/56 (68) 129/64 (85) Pulse Ox 96 94 O2 Delivery Room Air Room Air 02/14/23 09:04 Temp 36.3 Pulse 72 Resp 20 B/P (MAP) 139/78 (98) Pulse Ox 97 O2 Delivery Room Air 02/14/23 00:00 Intake Total 736 ml Balance 736 ml Weight (Pounds): 175 Weight (Calculated Kilograms): 79.629302 Constitutional: AAO x 3, well-developed, well-nourished Respiratory: No accessory muscle use, No respiratory distress; chest expansion is symmetric, chest is bilaterally symmetric, lungs clear to auscultation Cardiovascular: regular rate-rhythm; No JVD; S1 and S2 Gastrointestional: No tender; soft, round; No guarding; audible bowel sounds Extremities: no lower extremity edema bilateral Neurologic/Psychiatric: other (moves all extremities) Skin: No rash on exposed areas, No ulcerations on exposed areas Results/Procedures: Labs Laboratory Tests 02/13/23 09:55: White Blood Count 5.9, Red Blood Count 4.46, Hemoglobin 13.6, Hematocrit 40, Mean Corpuscular Volume 90, Mean Corpuscular Hemoglobin 31, Mean Corpuscular Hemoglobin Concent 34, Red Cell Distribution Width 13.7, Platelet Count 217, Mean Platelet Volume 9.1, Immature Granulocyte % (Auto) 0, Neutrophils (%) (Auto) 53, Lymphocytes (%) (Auto) 36, Monocytes (%) (Auto) 8, Eosinophils (%) (Auto) 3, Basophils (%) (Auto) 1, Neutrophils # (Auto) 3.1, Lymphocytes # (Auto) 2.1, Monocytes # (Auto) 0.5, Eosinophils # (Auto) 0.2, Basophils # (Auto) 0.0, Immature Granulocyte # (Auto) 0.0, Sodium Level 141, Potassium Level 3.9, Chloride Level 107, Carbon Dioxide Level 24, Anion Gap 10, Blood Urea Nitrogen 14, Creatinine 1.30, Estimat Glomerular Filtration Rate 61, BUN/Creatinine Ratio 11, Glucose Level 114H, Calcium Level 9.5, Corrected Calcium 9.2, Magnesium Level 2.0, Total Bilirubin 0.5, Aspartate Amino Transf (AST/SGOT) 24, Alanine Aminotransferase (ALT/SGPT) 24, Alkaline Phosphatase 52, Troponin I < 0.028, Total Protein 7.7, Albumin 4.4 02/13/23 11:55: Troponin I < 0.028 02/13/23 18:09: Troponin I < 0.028 02/14/23 04:17: Triglycerides Level 276H, Cholesterol Level 110, LDL Cholesterol Direct 48, VLDL Cholesterol 55H, HDL Cholesterol 28L A/P: Assessment: Non-specific chest pain H/O Successful typical AVNRT ablation on 06-22-[address] Tam CAD - Mild CAD on coronary angiography by Dr. Tam on 06-23-19 HTN HLD CML - managed by Dr. Broussard Plan: Non-specific chest discomfort - no evidence of ACS - echocardiogram to eval structure and function - pending - MPI - pending Continue home medications Monitor lab JOSE MARIA MILLER Feb 14, 2023 09:35
[2023-02-14] MEDS ORDERED: IMAT400T7 PO (09:59)
[2023-02-14] MEDS ORDERED: DILT-27 PO (09:59)
[2023-02-14] MEDS ORDERED: TMSL.4C PO (09:59)
[2023-02-14 11:25] VITALS: BP 127/71
--- NOTE | 2023-02-14 13:21 | STRESS TEST ---
DATE OF SERVICE: 02/14/2023 RESTING AND POST REGADENOSON TECHNETIUM-99M TETROFOSMIN SPECT CT IMAGING ORDERING PHYSICIAN: Prisca White APRN. PRIMARY PHYSICIAN: Dr. Waldrop. ATTENDING PHYSICIAN: Dr. Ruiz. CLINICAL DIAGNOSIS: Chest pain. Baseline images were carried out after injection of 10.54 mCi of technetium-99m tetrofosmin. This was followed by 0.4 mg regadenoson and 31.4 mCi of technetium-99m tetrofosmin for stress imaging. The electrocardiogram showed sinus rhythm and a right bundle branch block. The electrocardiogram did not change significantly with the regadenoson infusion. The patient tolerated the procedure well. Review of images at rest and following stress does not indicate any distinct perfusion defects consistent with significant myocardial ischemia or infarction. Diaphragmatic attenuation of the diaphragmatic wall of the left ventricle is seen both at rest and following regadenoson infusion. Gated images showed normal regional wall motion including the diaphragmatic wall of the left ventricle. CONCLUSIONS: 1. No evidence of any significant myocardial ischemia or infarction on this study. 2. Normal regional wall motion. 3. Normal to hyperdynamic left ventricular systolic function with a calculated ejection fraction of 85%. CC: Dr. Ruiz ? requested, unable to deliver Job ID: [id number] DocumentID: [id number] Dictated Date: 02/14/2023 12:41:09 Culinary Director Date: 02/14/2023 13:19:00 Dictated By: RAYNE LEE MD; JOHNNIE; FACP; FACC;
[2023-02-14] MEDS ORDERED: LISI10TA25 PO (15:25)
[2023-02-14 15:35] VITALS: BP 127/71
--- NOTE | 2023-02-14 16:42 | Short Stay Summary-Hospitalist ---
History of Present Illness HPI/Chief Complaint Jose G Henry is a 67 year old male with PMH HTN, HLD, CML, who presented with shoulder pain. He reports he was in the shower when he started having pain in his shoulder/back on the left side. He also had numbness in his left hand. He denies chest pain. He denies diaphoresis. He denies nausea and vomiting. He denies shortness of breath. His pain is improved this morning. He still has some numbness in his hand. Source: patient, family Exam Limitations: no limitations Date Seen 02/14/23 Time Seen by a Provider: 10:00 Attending Physician Tom Waldrop DO PCP Admitting Physician: Brandy Jonas MD Attending Physician: Brandy Jonas MD Referring Physician Date of Admission Feb 13, 2023 at 14:01 Home Medications & Allergies Home Medications Reviewed patient Home Medication Reconciliation performed by pharmacy medication reconciliations installation technician and/or nursing. Patients Allergies have been reviewed. Allergies Allergies Coded Allergies NKANo Known Allergies (Verified Allergy, Mild, 08/25/21) Past Snjnsui-Hlwfxl-Pfaigy Hx Patient Social History Tobacco Use?: Yes Tobacco type used: Cigarettes Smoking Status: Former Smoker Smokeless Tobacco Frequency: Former User Use of E-Cig and/or Vaping dev: No Substance use?: No Substance type: Nicotine Alcohol Use?: No Pt feels they are or have been: No Immunizations Up To Date Tetanus Booster (TDap): Unknown Hepatitis A: No Hepatitis B: No Current Status Advance Directives: No Communicates: Verbally Primary Language: Iraqi Preferred Spoken Language: Iraqi Is interpretation needed?: No Sensory deficits: Vision impairment Implanted or Applied Medical D: None Past Medical History Surgeries: Tonsillectomy Currently Using CPAP: No Currently Using BIPAP: No Hypertension Gastroesophageal Reflux Hypothyroidsim Blood Disorders: No Family Medical History No Pertinent Family Hx Review of Systems Constitutional: no symptoms reported Respiratory: no symptoms reported Cardiovascular: no symptoms reported Gastrointestinal: no symptoms reported Musculoskeletal: back pain Psychiatric/Neurological: Numbness Physical Exam Physical Exam Vital Signs Vital Signs - First Documented 02/13/23 09:47 Temp 35.7 Pulse 68 Resp 16 B/P (MAP) 189/110 (136) Pulse Ox 99 O2 Delivery Room Air Capillary Refill : Less Than 3 Seconds Height, Weight, BMI Height: 5'11.00" Weight: 175lbs. oz. 79.784923cy; 30.67 BMI Method:Stated General Appearance: No Apparent Distress, WD/WN Eyes: Bilateral Eye Normal Inspection, Bilateral Eye PERRL, Bilateral Eye EOMI HEENT: PERRL/EOMI, Pharynx Normal Neck: Normal Inspection, Non Tender, Supple Respiratory: Lungs Clear, Normal Breath Sounds, No Accessory Muscle Use, No Respiratory Distress Cardiovascular: Regular Rate, Rhythm, No Edema, No Murmur Gastrointestinal: Normal Bowel Sounds, Non Tender, Soft Extremity: Normal Inspection, Non Tender, No Pedal Edema Neurologic/Psychiatric: Alert, Oriented x3, Normal Mood/Affect Skin: Normal Color, Warm/Dry Results Results/Procedures Labs Laboratory Tests 02/13/23 09:55 Patient resulted labs reviewed. Imaging: Reviewed Imaging Report Short Stay Diagnosis Discharge Diagnosis-Short Stay Admission Diagnosis Atypical chest pain Final Discharge Diagnosis Shoulder pain, hand numbness Conclusion Plan Left shoulder pain Left hand numbness Cardiology consulted, assisted with care Troponins and EKG unremarkable Stress test negative Echo with mild pulmonary hypertension Possible cervical myelopathy Follow up with Dr. Waldrop in a week or two May need further imaging workup of cervical spine Diagnosis/Problems Diagnosis/Problems (1) Shoulder pain Status: Acute Qualifiers: Qualified Codes: M25.512 - Pain in left shoulder (2) Numbness of left hand Status: Acute (3) Cervical myelopathy Status: Acute (4) Non-cardiac chest pain Status: Acute BRANDY JONAS MD Feb 14, 2023 16:42
--- NOTE | 2023-02-14 17:54 | Progress Note - Cardiology ---
Cardiology SOAP Progress Note Subjective: Notes some persistent L arm numbness (mild) No cp or palp or syncope or shortness of breath Denies gen or focal weakness No n/v/d Objective: I&O/Vital Signs 02/14/23 02/14/23 02/14/23 02/14/23 08:09 09:04 09:36 11:25 Temp 36.3 36.4 Pulse 65 72 72 Resp 20 20 B/P (MAP) 129/64 (85) 139/78 (98) 127/71 (89) Pulse Ox 97 96 96 O2 Delivery Room Air Room Air Room Air 02/14/23 02/14/23 13:00 15:35 Temp 36.4 Pulse 81 81 Resp 20 B/P (MAP) 127/71 Pulse Ox 96 O2 Delivery Room Air 02/13/23 23:59 Intake Total 736 ml Balance 736 ml Weight (Pounds): 175 Weight (Calculated Kilograms): 79.776290 Constitutional: AAO x 3, well-developed, well-nourished Respiratory: No accessory muscle use, No respiratory distress; chest expansion is symmetric, chest is bilaterally symmetric, lungs clear to auscultation Cardiovascular: regular rate-rhythm; No JVD; S1 and S2 Gastrointestional: No tender; soft, round; No guarding; audible bowel sounds Extremities: no lower extremity edema bilateral Neurologic/Psychiatric: other (moves all extremities) Skin: No rash on exposed areas, No ulcerations on exposed areas Results/Procedures: Labs Laboratory Tests 02/13/23 18:09: Troponin I < 0.028 02/14/23 04:17: Triglycerides Level 276H, Cholesterol Level 110, LDL Cholesterol Direct 48, VLDL Cholesterol 55H, HDL Cholesterol 28L Laboratory Tests 02/13/23 09:55 A/P: Assessment: Non-specific chest pain w/o any evidence of ACS or cor ischemia - serial cardiac enzymes negative for myocardial injury - echo on 02-14-23: LVEF 60-6%, PASP 30-35 mmHg - MPI on 02-14-23: no ischemia or infarction, normal to hyperdynamic LV function H/O successful typical AVNRT ablation on 06-22-[address] Tam CAD - Mild CAD on coronary angiography by Dr. Tam on 06-23-19 HTN HLD CML - managed by Dr. Bobo Plan: I discussed his CV w/u with him Advised f/u with pcp regarding L arm discomfort/numbness Oupt cardiac f/u advised also Continue home medications RAYNE LEE MD FACP FAC CCDS Feb 14, 2023 17:53
== END 2023-02-14 15:28 | disposition home or self-care (01) ==
LOC: EDUNIT# 09:46 → ER 09:47 → UNDOADMOB 14:01 → 4TH 14:01 → UNDODISOB 02-14 15:35
PROVIDERS: ADMIT Internal Medicine; ATTEND Internal Medicine
DX: M25.512 Pain in left shoulder (principal); R20.0 Anesthesia of skin; C92.10 Chronic myeloid leukemia, BCR/ABL-positive, not having achieved remission; G95.9 Disease of spinal cord, unspecified; R07.89 Other chest pain; I25.10 Atherosclerotic heart disease of native coronary artery without angina pectoris; I10 Essential (primary) hypertension; E78.5 Hyperlipidemia, unspecified; Z87.891 Personal history of nicotine dependence; Z98.890 Other specified postprocedural states
CPT/HCPCS: 71045; 78452; 80053; 80061; 83735; 84484; 85025; 93005; 93017; 93041; 96372; 99284; A9502; C8929; G0378; 36415; 93306

== ENCOUNTER → 2023-02-19 | Outpatient (CLI) | payer OTHER ==
[~2023-02-19] MED LIST changes: +DILT-27 PO; +IMAT400T7 PO; +LISI10TA25 PO; +ROSU5TAB13 PO; +TMSL.4C PO; +[UNRECOGNIZED DRUG - OTHER] PO
--- NOTE | 2023-02-19 18:06 | Diagnostic Imaging Report ---
INDICATION: Numbness going down the left arm COMPARISONS: None FINDINGS: AP, lateral, and odontoid views of the cervical spine show moderate degenerative changes of the cervical spine with endplate sclerosis as well as anterior bridging osteophytes. This is most prominent from C4 through C7. Vertebral body heights appear well-maintained. Prevertebral soft tissue as well as relationship of the dens to the lateral mass of C1 is well maintained. Mild multilevel hypertrophic facet changes are seen. IMPRESSION: Moderate cervical spondylosis most prominent from C4 through C7 but no evidence of acute fracture or acute subluxation. Dictated by: Dictated on workstation # [id number]
== END ==
LOC: RAD 11:13
PROVIDERS: ATTEND Family Medicine
DX: M47.812 Spondylosis without myelopathy or radiculopathy, cervical region (principal); R20.0 Anesthesia of skin
CPT/HCPCS: 72040

== ENCOUNTER → 2023-03-25 | Outpatient (CLI) | payer OTHER ==
--- NOTE | 2023-03-25 13:21 | Diagnostic Imaging Report ---
PROCEDURE: MR imaging cervical spine without contrast. TECHNIQUE: Multiplanar, multisequence MR imaging of the cervical spine was performed without contrast. INDICATION: Neck pain. Right arm radiculopathy. COMPARISON: 02/19/2023. FINDINGS: No acute fracture or dislocation is seen in the cervical spine. There is normal alignment of the cervical spine. The vertebral body heights are well maintained. The bone marrow signal is unremarkable. No focal osseous lesions. The craniocervical junction is maintained. The cervical spinal cord demonstrates normal intrinsic signal. No epidural collections are seen. The included brainstem and posterior fossa have normal appearance. Multilevel degenerative changes are seen in the cervical spine with posterior disc bulges and uncovertebral arthropathy. C2-C3: Posterior disc bulge, uncovertebral arthropathy, and buckling of the ligamentum flavum results in moderate to severe spinal canal stenosis and moderate right and [id number]-kieurnza left foraminal stenosis. C3-C4: Uncovertebral arthropathy results in [id number] spinal canal narrowing and no right and moderate left foraminal stenosis. C4-C5: Posterior disc bulge and uncovertebral arthropathy results in [id number] spinal canal narrowing and moderate right and moderate to severe left foraminal stenosis. C5-C6: Posterior disc bulge, uncovertebral arthropathy, and buckling of the ligamentum flavum results in severe spinal canal stenosis and severe bilateral foraminal stenosis. C6-C7: Posterior disc bulge and uncovertebral arthropathy results in moderate spinal canal stenosis and moderate right and severe left foraminal stenosis. C7-T1: Left subarticular protrusion and uncovertebral arthropathy results in mild spinal canal narrowing, severe left lateral recess stenosis, and mild right and severe left foraminal stenosis. The soft tissues of neck are unremarkable. IMPRESSION: 1. No acute fracture or dislocation of the cervical spine. 2. Multilevel degenerative changes in the cervical spine, greatest at C5-C6, C6-C7, and C7-T1. Dictated by: Dictated on workstation # [id number]
== END ==
LOC: RAD 08:14
PROVIDERS: ATTEND Family Medicine
DX: M47.22 Other spondylosis with radiculopathy, cervical region (principal); M47.893 Other spondylosis, cervicothoracic region
CPT/HCPCS: 72141